=== PATIENT | male | born 1970 | race Caucasian/White ===

== ENCOUNTER → 2017-04-19 | Outpatient (CLI) | payer OTHER | LOC: M PAIN 09:00 | DX: M79.1 Myalgia (principal); M47.816 Spondylosis without myelopathy or radiculopathy, lumbar region; M47.12 Other spondylosis with myelopathy, cervical region; E78.00 Pure hypercholesterolemia, unspecified; Z79.899 Other long term (current) drug therapy; Z88.8 Allergy status to other drugs, medicaments and biological substances | CPT/HCPCS: G0463 ==

== ENCOUNTER → 2017-05-12 | Outpatient (CLI) | payer OTHER ==
[~2017-05-12] MED LIST: BUPIVACAINE HCL 0.25% 10 ML VIAL As Ordered; BUPIVACAINE HCL 0.25% 30 ML VIAL As Ordered; TRIAMCINOLONE ACETONIDE SUSP 40 MG/ML VIAL (J3301) As Ordered; diazePAM 5 MG TAB As Ordered; oxyCODONE 5MG TAB As Ordered
== END ==
LOC: M PAIN 14:00
DX: G89.29 Other chronic pain (principal); M79.1 Myalgia; E78.00 Pure hypercholesterolemia, unspecified; Z79.899 Other long term (current) drug therapy
CPT/HCPCS: J3301

== ENCOUNTER → 2017-06-08 | Outpatient (CLI) | payer OTHER | LOC: M PAIN 14:00 | DX: G89.29 Other chronic pain (principal); M79.1 Myalgia; M47.816 Spondylosis without myelopathy or radiculopathy, lumbar region; M47.12 Other spondylosis with myelopathy, cervical region; K21.9 Gastro-esophageal reflux disease without esophagitis; E78.00 Pure hypercholesterolemia, unspecified; Z79.899 Other long term (current) drug therapy | CPT/HCPCS: G0463 ==

== ENCOUNTER → 2017-08-01 | Outpatient (CLI) | payer OTHER | LOC: M PAIN 14:00 | DX: G89.29 Other chronic pain (principal); M79.1 Myalgia; M54.2 Cervicalgia; M25.511 Pain in right shoulder; M25.512 Pain in left shoulder; M54.6 Pain in thoracic spine; K21.9 Gastro-esophageal reflux disease without esophagitis; M19.90 Unspecified osteoarthritis, unspecified site; E78.00 Pure hypercholesterolemia, unspecified; Z79.899 Other long term (current) drug therapy | CPT/HCPCS: J3301 ==

== ENCOUNTER → 2017-09-01 | Outpatient (CLI) | payer OTHER | LOC: M PAIN 14:30 | DX: M79.1 Myalgia (principal); M47.816 Spondylosis without myelopathy or radiculopathy, lumbar region; M47.12 Other spondylosis with myelopathy, cervical region; K21.9 Gastro-esophageal reflux disease without esophagitis; M19.90 Unspecified osteoarthritis, unspecified site; E78.00 Pure hypercholesterolemia, unspecified | CPT/HCPCS: G0463 ==

== ENCOUNTER → 2017-10-20 | Outpatient (CLI) | payer OTHER | LOC: M PAIN 11:30 | DX: M43.02 Spondylolysis, cervical region (principal); K21.9 Gastro-esophageal reflux disease without esophagitis; E78.00 Pure hypercholesterolemia, unspecified; Z79.899 Other long term (current) drug therapy | CPT/HCPCS: G0463 ==

== ENCOUNTER 2017-12-11 06:51 | Emergency (ER) | payer OTHER ==
[2017-12-11] MEDS: diazePAM 5 MG TAB PO (07:36)
[2017-12-11] MEDS: KETOROLAC 60 MG/2 ML VIAL (J1885) IM (07:37)
== END 2017-12-11 09:12 | disposition home or self-care (01) ==
LOC: M ED 06:51
DX: M50.30 Other cervical disc degeneration, unspecified cervical region (principal); M54.2 Cervicalgia; M62.838 Other muscle spasm; Z79.899 Other long term (current) drug therapy
CPT/HCPCS: J1885

== ENCOUNTER → 2018-01-08 | Outpatient (CLI) | payer OTHER ==
[~2018-01-08] MED LIST changes: -BUPIVACAINE HCL 0.25% 10 ML VIAL As Ordered; -BUPIVACAINE HCL 0.25% 30 ML VIAL As Ordered; +ISOVUE-M 300 61% 15ML VIAL (Q9967) As Ordered; +LIDOCAINE 1% SDV INJ 30 ML VIAL As Ordered; -TRIAMCINOLONE ACETONIDE SUSP 40 MG/ML VIAL (J3301) As Ordered; -diazePAM 5 MG TAB As Ordered; +methylPREDNISolone SUSP 40 MG/ML (DEPO-medrol) VIAL (J1030) As Ordered; -oxyCODONE 5MG TAB As Ordered
== END ==
LOC: M PAIN 11:45
DX: G89.29 Other chronic pain (principal); M48.02 Spinal stenosis, cervical region; K21.9 Gastro-esophageal reflux disease without esophagitis; M19.90 Unspecified osteoarthritis, unspecified site; E78.00 Pure hypercholesterolemia, unspecified; Z79.899 Other long term (current) drug therapy
CPT/HCPCS: J1030

== ENCOUNTER → 2018-01-22 | Outpatient (CLI) | payer OTHER ==
[~2018-01-22] MED LIST changes: +AMBIEN PO; +BUDE300T PO; +BUSPAR PO; +DICL75TA PO; -ISOVUE-M 300 61% 15ML VIAL (Q9967) As Ordered; -LIDOCAINE 1% SDV INJ 30 ML VIAL As Ordered; +LORTABELIX PO; +ROBA500T PO; +[UNRECOGNIZED DRUG - CODE] PO; -methylPREDNISolone SUSP 40 MG/ML (DEPO-medrol) VIAL (J1030) As Ordered
--- NOTE | 2018-02-15 00:50 | ECWPNPC ---
PATIENT NAME: BONILLA RODRIGUEZ : 1970 GENDER: MALE VISIT DATE: 01/22/2018 DISCHARGE DATE: 01/22/18 1136 VISIT LOCKED DATE TIME: PHYSICIAN: STEVIE VERAS RESOURCE: STEVIE VERAS REASON FOR APPOINTMENT 1. POST PROCEDURE HISTORY OF PRESENT ILLNESS DEPRESSION SCREENING: PHQ-2 IN LAST TWO WEEKS HAVE YOU BEEN BOTHERED BY LITTLE INTEREST OR PLEASURE IN DOING THINGSNO FEELING DOWN, DEPRESSED, OR HOPELESSNO HISTORY OF PRESENT ILLNESS: HERE FOR POST PROCEDURE F/U.HAD LILLIAN ON 01-08-18.REPORTING SIGNIFICANT IMPROVEMENT IN PAIN POST PROCEDURE.HAVING LESS TINGLING PAIN IN LEFT ARM POST PROCEDURE.HAVING LESS NECK PAIN POST PROCEDURE.RATING PAIN VAS 3/10. PAIN THE PATIENT DESCRIBES THE PAIN... FALL RISK SCREENING: SCREENING :NO FALLS IN THE PAST YEAR CURRENT MEDICATIONS TAKING IBUPROFEN 800 MG TABLET 1 TABLET WITH FOOD OR MILK NEEDED ORALLY THREE TIMES A DAY TAKING OMEPRAZOLE 20 MG CAPSULE DELAYED RELEASE 1 CAPSULE ORALLY ONCE A DAY TAKING CYMBALTA 30 MG CAPSULE DELAYED RELEASE PARTICLES 1 CAPSULE ORALLY ONCE A DAY NOT-TAKING SIMVASTATIN 20 MG TABLET 1 TABLET IN THE EVENING ORALLY ONCE A DAY NOT-TAKING BUSPIRONE HCL 5 MG TABLET 1 TAB ORALLY TWICE A DAY NOT-TAKING BUPROPION HCL ER (XL) 300 MG TABLET EXTENDED RELEASE 24 HOUR 1 TABLET IN THE MORNING ORALLY ONCE A DAY NOT-TAKING BACTRIM DS 800-160 MG TABLET 1 TABLET ORALLY TWICE A DAY MEDICATION LIST REVIEWED AND RECONCILED WITH THE PATIENT PAST MEDICAL HISTORY ACID REFLUX ARTHRITIS CHRONIC NECK/BACK PAIN HIGH CHOLESTEROL ALLERGIES N.K.D.A. SURGICAL HISTORY RIGHT INGUINAL HERNIA RIGHT INGUINAL HERNIA RIGHT INGUINAL HERNIA 09/19 RIGHT INGUINAL HERNIA 09/25 LEFT SHOULDER(SLAP REPAIR) 01/25 SEPTOPLASTY 07/26 SOCIAL HISTORY GENERAL: TOBACCO USE ARE YOU A:NONSMOKER HIV / HEP-C SCREENING HIV TEST OFFERED TO PATIENT:YES DATE OFFERED:03/24/2017 TEST ACCEPTED:NO REASON:PATIENT DECLINED HEP-C TEST OFFERED TO PATIENT:NO ANGLICAN [id number] NONE LANGUAGE LANGUAGES SPOKEN:FRENCH LEARNING BARRIERS / SPECIAL NEEDS BARRIERS TO LEARNING?NO HEARING IMPAIRED?NO VISION IMPAIRED?YES :CORRECTIVE LENSES GLASSES/CONTACTS COGNITIVELY IMPAIRED?NO READINESS TO LEARN?YES LEARNING PREFERENCES?NO LEARNING CAPABILITIES PRESENT?YES EMOTIONAL BARRIERS?NO SPECIAL DEVICES?NO AUTO 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 CONSTITUTIONAL: ANY CHANGE IN YOUR MEDICAL CONDITION? NO . CHILLS NO . FEVER NO . INFECTION: DO YOU HAVE NEW INFECTIONS? NO . DO YOU HAVE HISTORY OF MRSA? NO . MUSCULOSKELETAL: ANY NEW PATTERNS OF PAIN OR NUMBNESS? NO . GASTROENTEROLOGY: ANY NEW CHANGE IN BOWEL CONTROL? NO . GENITOURINARY: ANY NEW CHANGE IN BLADDER CONTROL? NO . IS THERE A CHANCE YOU COULD BE ? NO . HEMATOLOGY/LYMPH: DO YOU TAKE ANY BLOOD THINNERS? (FOR EXAMPLE- COUMADIN, PLAVIX, AGGRENOX, PLATEL, PRADAXA, OR XARELTO) NO . WHEN WAS YOUR LAST DOSE? DATE: TIME: . NEUROLOGY: HAVE YOU FALLEN IN THE PAST 6 MONTHS? NO . ANY NEW EXTREMITY NUMBNESS OR WEAKNESS? NO . CARDIOLOGY: DO YOU HAVE A PACEMAKER OR DEFIBRILLATOR? NO . RESPIRATORY: HAVE YOU BEEN SICK IN THE PAST WEEK? NO . FEVER NO . FLU LIKE SYMPTOMS? NO . COUGH NO . INTEGUMENTARY: DO YOU HAVE ANY RASHES OR OPEN SORES? NO . ALLERGIC/IMMUNO: ARE YOU ALLERGIC TO SHELLFISH OR IV DYE? NO . ANY NEW ALLERGIES? NO . PSYCHIATRIC: DO YOU HAVE THOUGHTS OF HURTING YOURSELF OR SOMEONE ELSE? NO . ARE YOU ABUSED, NEGLECTED, OR IN AN UNSAFE ENVIRONMENT? NO . ENDOCRINOLOGY: ARE YOU DIABETIC? NO . OTHER: DO YOU NEED ANY PRESCRIPTIONS? NO . IF YES, PLEASE LIST: ____ . ANY NEW PROBLEMS WITH YOUR MEDICATIONS? NO . WHEN DID YOU LAST EAT? ____ . WHEN DID YOU LAST DRINK? ____ . WHAT DID YOU LAST DRINK? ____ . NAME OF PERSON DRIVING YOU HOME? ____ . DO YOU HAVE ANY OTHER QUESTIONS OR CONCERNS NO, FLU VACCINE RECEIVED 01/02/18 . VITAL SIGNS WT 239.0 LBS, HT 71", BMI 33.33 INDEX, BP 137/88 MM HG, HR 94 /MIN, RR 16 /MIN, TEMP 97.0 F, OXYGEN SAT % 96%, NA INITIALS AW 1105, REVIEWED BY: EM. EXAMINATION GENERAL EXAMINATION: GENERAL APPEARANCE:AWAKE,ALERT ,PLEAASANT . PSYCHAFFECT NORMAL . LUNGS:LUNG PABLO ARE CLEAR TO AUSCULTATION BILATERALLY. GOOD MOVEMENT OF AIR . HEART:S1, S2 IN A REGULAR RATE AND RHYTHM. NO SIGNIFICANT MURMURS, RUBS OR GALLOPS NOTED . 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 PROCEDURE CODES FA211 ESTABILISHED PATIENT [facility] FACILITY CHARGE DISPOSITION & COMMUNICATION FOLLOW UP 3 MONTHS ELECTRONICALLY SIGNED BY LUISITO MINOR ON 02/14/2018 AT 02:13 PM EST DISCLAIMER : THIS IS A VISIT SUMMARY EXTRACTED FROM THE [employer] CHART. IT IS NOT A COPY OF THE [employer] PROGRESS NOTE. ANGELITA
== END ==
LOC: M PAIN 11:00
PROVIDERS: ATTEND Nurse Practitioner Family
DX: M43.02 Spondylolysis, cervical region (principal); K21.9 Gastro-esophageal reflux disease without esophagitis; E78.00 Pure hypercholesterolemia, unspecified; Z79.899 Other long term (current) drug therapy

== ENCOUNTER → 2018-04-23 | Outpatient (CLI) | payer OTHER ==
--- NOTE | 2018-05-09 01:59 | ECWPNPC ---
PATIENT NAME: BONILLA RODRIGUEZ : 1970 GENDER: MALE VISIT DATE: 04/23/2018 DISCHARGE DATE: 04/23/18945 VISIT LOCKED DATE TIME: PHYSICIAN: STEVIE VERAS RESOURCE: STEVIE VERAS REASON FOR APPOINTMENT 1. 3 MONTHS HISTORY OF PRESENT ILLNESS HISTORY OF PRESENT ILLNESS: HERE FOR F/U OF CHRONIC NECK PAIN.WAS DOING WELL AFTER LILLIAN DONE ON 01/08/18.PAIN HAS GRAUALLY RETURNED.PAIN RADIATES INTO BOTH SHOULDERS. RATING PAIN VAS 4/10. PAIN THE PATIENT DESCRIBES THE PAIN... FALL RISK SCREENING: SCREENING : NO FALLS IN THE PAST YEAR. CURRENT MEDICATIONS TAKING OMEPRAZOLE 20 MG CAPSULE DELAYED RELEASE 1 CAPSULE ORALLY ONCE A DAY TAKING CYMBALTA 60 MG CAPSULE DELAYED RELEASE PARTICLES 1 CAPSULE ORALLY ONCE A DAY NOT-TAKING IBUPROFEN 800 MG TABLET 1 TABLET WITH FOOD OR MILK NEEDED ORALLY THREE TIMES A DAY NOT-TAKING SIMVASTATIN 20 MG TABLET 1 TABLET IN THE EVENING ORALLY ONCE A DAY NOT-TAKING BUSPIRONE HCL 5 MG TABLET 1 TAB ORALLY TWICE A DAY NOT-TAKING BUPROPION HCL ER (XL) 300 MG TABLET EXTENDED RELEASE 24 HOUR 1 TABLET IN THE MORNING ORALLY ONCE A DAY NOT-TAKING BACTRIM DS 800-160 MG TABLET 1 TABLET ORALLY TWICE A DAY MEDICATION LIST REVIEWED AND RECONCILED WITH THE PATIENT PAST MEDICAL HISTORY ACID REFLUX ARTHRITIS CHRONIC NECK/BACK PAIN HIGH CHOLESTEROL ALLERGIES N.K.D.A. SURGICAL HISTORY RIGHT INGUINAL HERNIA RIGHT INGUINAL HERNIA RIGHT INGUINAL HERNIA 09/19 RIGHT INGUINAL HERNIA 09/25 LEFT SHOULDER(SLAP REPAIR) 01/25 SEPTOPLASTY 07/26 FAMILY HISTORY FATHER: ALIVE MOTHER: SIBLINGS: ALIVE SOCIAL HISTORY GENERAL: TOBACCO USE ARE YOU A:NONSMOKER SMOKELESS TABACCO HIV / HEP-C SCREENING HIV TEST OFFERED TO PATIENT:YES DATE OFFERED:03/24/2017 TEST ACCEPTED:NO REASON:PATIENT DECLINED HEP-C TEST OFFERED TO PATIENT:NO MANDAEISM [id number] NONE LANGUAGE LANGUAGES SPOKEN:MACEDONIAN LEARNING BARRIERS / SPECIAL NEEDS BARRIERS TO LEARNING?NO HEARING IMPAIRED?NO VISION IMPAIRED?YES :CORRECTIVE LENSES GLASSES/CONTACTS COGNITIVELY IMPAIRED?NO READINESS TO LEARN?YES LEARNING PREFERENCES?NO LEARNING CAPABILITIES PRESENT?YES EMOTIONAL BARRIERS?NO SPECIAL DEVICES?NO CUSTOMER ASSISTANT NEEDED?NO PAIN CLINIC PFS, CLERGY, PUBLIC HEALTH REFERRALS HAS THE PATIENT BEEN EDUCATED REGARDING HIS/HER PLAN OF CARE?YES HAS THE PATIENT BEEN EDUCATED REGARDING PAIN, THE RISK FOR PAIN, THE IMPORTANCE OF EFFECTIVE PAIN MANAGEMENT, AND THE PAIN ASSESSMENT PROCESS?YES ADVANCE DIRECTIVE ADVANCE DIRECTIVE DISCUSSED WITH PATIENT:YES DECLINED HOSPITALIZATION/MAJOR DIAGNOSTIC PROCEDURE SURGERIES REVIEW OF SYSTEMS REVIEWED BY: PROVIDER: STEVIE JORGE . CONSTITUTIONAL: ANY CHANGE IN YOUR MEDICAL CONDITION? NO . CHILLS NO . FEVER NO . INFECTION: DO YOU HAVE NEW INFECTIONS? NO . DO YOU HAVE HISTORY OF MRSA? NO . MUSCULOSKELETAL: ANY NEW PATTERNS OF PAIN OR NUMBNESS? INCREASED PAIN IN SHOULDER AREAS MORE TO THE LEFT . GASTROENTEROLOGY: ANY NEW CHANGE IN BOWEL CONTROL? NO . GENITOURINARY: ANY NEW CHANGE IN BLADDER CONTROL? NO . IS THERE A CHANCE YOU COULD BE ? NO . HEMATOLOGY/LYMPH: DO YOU TAKE ANY BLOOD THINNERS? (FOR EXAMPLE- COUMADIN, PLAVIX, AGGRENOX, PLATEL, PRADAXA, OR XARELTO) NO . WHEN WAS YOUR LAST DOSE? DATE: TIME: . NEUROLOGY: HAVE YOU FALLEN IN THE PAST 12 MONTHS? NO . ANY NEW EXTREMITY NUMBNESS OR WEAKNESS? NO . CARDIOLOGY: DO YOU HAVE A PACEMAKER OR DEFIBRILLATOR? NO . RESPIRATORY: HAVE YOU BEEN SICK IN THE PAST WEEK? NO . FEVER NO . FLU LIKE SYMPTOMS? NO . COUGH NO . INTEGUMENTARY: DO YOU HAVE ANY RASHES OR OPEN SORES? NO . ALLERGIC/IMMUNO: ARE YOU ALLERGIC TO IV DYE? NO . ANY NEW ALLERGIES? NO . PSYCHIATRIC: DO YOU HAVE THOUGHTS OF HURTING YOURSELF OR SOMEONE ELSE? NO . ARE YOU ABUSED, NEGLECTED, OR IN AN UNSAFE ENVIRONMENT? NO . ENDOCRINOLOGY: ARE YOU DIABETIC? NO . OTHER: DO YOU NEED ANY PRESCRIPTIONS? NO . IF YES, PLEASE LIST: ____ . ANY NEW PROBLEMS WITH YOUR MEDICATIONS? NO . WHEN DID YOU LAST EAT? ____ . WHEN DID YOU LAST DRINK? ____ . WHAT DID YOU LAST DRINK? ____ . NAME OF PERSON DRIVING YOU HOME? ____ . DO YOU HAVE ANY OTHER QUESTIONS OR CONCERNS NO . VITAL SIGNS WT 244.4 LBS, HT 71", BMI 34.08 INDEX, BP 139/95 MM HG, HR 72 /MIN, RR 16 /MIN, TEMP 97.0 F, OXYGEN SAT % 96%, NA INITIALS AW 0906. EXAMINATION GENERAL EXAMINATION: GENERAL APPEARANCE:ALERT,NO DISTRESS . PSYCHAFFECT NORMAL . LUNGS:LUNG PABLO ARE CLEAR TO AUSCULTATION BILATERALLY. GOOD MOVEMENT OF AIR . HEART:S1, S2 IN A REGULAR RATE AND RHYTHM. NO SIGNIFICANT MURMURS, RUBS OR GALLOPS NOTED . MUSCULOSKELETAL:5/5 UPPER EXTREMITY MST. CERVICAL- FOR PAIN WITH PALPATION OF CERVICAL SPINE. - FOR PAIN WITH PALPATION OF CERVICAL PARASPINALS. - FOR PAIN WITH PALPATION OF TRAPEZIUS BILAT . NEUROLOGIC EXAM:NORMAL SENSATION LIGHT TOUCH BILAT. ARMS.EQUAL /STRONG SOLAR ENERGY SYSTEMS DESIGNER STRENGTH BILAT. HANDS. DIAGNOSTIC:CERVICAL MRI-01/2017. 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 PROCEDURE CODES FA211 ESTABILISHED PATIENT [facility] CHARGE DISPOSITION & COMMUNICATION FOLLOW UP POST (REASON: LILLIAN) ELECTRONICALLY SIGNED BY LUISITO MINOR ON 05/07/2018 AT 09:10 AM EDT DISCLAIMER : THIS IS A VISIT SUMMARY EXTRACTED FROM THE [employer] CHART. IT IS NOT A COPY OF THE [employer] PROGRESS NOTE. ANGELITA
== END ==
LOC: M PAIN 09:00
PROVIDERS: ATTEND Nurse Practitioner Family
DX: M43.02 Spondylolysis, cervical region (principal); G89.29 Other chronic pain; K21.9 Gastro-esophageal reflux disease without esophagitis; M19.90 Unspecified osteoarthritis, unspecified site; E78.00 Pure hypercholesterolemia, unspecified; Z79.899 Other long term (current) drug therapy

== ENCOUNTER → 2018-05-17 | Outpatient (CLI) | payer OTHER ==
[~2018-05-17] MED LIST changes: +AMOX875T2 PO; +DULO1CAP3 PO; +HYDR-3713 PO; +ISOVUE-M 300 61% 15ML VIAL (Q9967) As Ordered ONE; +LIDOCAINE 1% SDV INJ 30 ML VIAL As Ordered ONE; +NAPR-855 PO; +OMEP-221 PO; +PRED10PA PO; +methylPREDNISolone SUSP 40 MG/ML (DEPO-medrol) VIAL (J1030) As Ordered ONE
--- NOTE | 2018-05-17 15:47 | REP ---
Cervical spine: Limited views. History: Cervical epidural injection for pain. 13 seconds of fluoroscopy time is reported. Findings: A sequence of four last image hold fluoroscopically obtained spot radiographs of the cervicothoracic junction document needle position and contrast injection associated with cervical epidural injection was. Electronically Signed by García Cardenas MD 05/17/2018 03:39 P
--- NOTE | 2018-06-04 00:07 | ECWPNPC ---
PATIENT NAME: BONILLA RODRIGUEZ : 1970 GENDER: MALE VISIT DATE: 05/17/2018 DISCHARGE DATE: 05/17/18 1556 VISIT LOCKED DATE TIME: PHYSICIAN: IRENE GONZALES MD RESOURCE: IRENE GONZALES MD REASON FOR APPOINTMENT 1. LILLIAN HISTORY OF PRESENT ILLNESS HISTORY OF PRESENT ILLNESS: PAIN THE PATIENT DESCRIBES THE PAIN... FALL RISK SCREENING: SCREENING :NO FALLS REPORTED IN THE LAST YEAR CURRENT MEDICATIONS TAKING OMEPRAZOLE 20 MG CAPSULE DELAYED RELEASE 1 CAPSULE ORALLY ONCE A DAY, NOTES: [id number] TAKING CYMBALTA 60 MG CAPSULE DELAYED RELEASE PARTICLES 1 CAPSULE ORALLY ONCE A DAY, NOTES: 05-17-18799 NOT-TAKING IBUPROFEN 800 MG TABLET 1 TABLET WITH FOOD OR MILK NEEDED ORALLY THREE TIMES A DAY NOT-TAKING SIMVASTATIN 20 MG TABLET 1 TABLET IN THE EVENING ORALLY ONCE A DAY NOT-TAKING BUSPIRONE HCL 5 MG TABLET 1 TAB ORALLY TWICE A DAY NOT-TAKING BUPROPION HCL ER (XL) 300 MG TABLET EXTENDED RELEASE 24 HOUR 1 TABLET IN THE MORNING ORALLY ONCE A DAY NOT-TAKING BACTRIM DS 800-160 MG TABLET 1 TABLET ORALLY TWICE A DAY MEDICATION LIST REVIEWED AND RECONCILED WITH THE PATIENT PAST MEDICAL HISTORY ACID REFLUX ARTHRITIS CHRONIC NECK/BACK PAIN HIGH CHOLESTEROL ALLERGIES N.K.D.A. SURGICAL HISTORY RIGHT INGUINAL HERNIA RIGHT INGUINAL HERNIA RIGHT INGUINAL HERNIA 09/19 RIGHT INGUINAL HERNIA 09/25 LEFT SHOULDER(SLAP REPAIR) 01/25 SEPTOPLASTY 07/26 BILATERAL PRK 2007 LEFT ANKLE ARTHROSCOPY 2016 RIGHT TIB/FIB REPAIR 2006 FAMILY HISTORY FATHER: ALIVE MOTHER: SIBLINGS: ALIVE SOCIAL HISTORY GENERAL: TOBACCO USE ARE YOU A:NONSMOKER SMOKELESS TOBACCO HIV / HEP-C SCREENING HIV TEST OFFERED TO PATIENT:YES DATE OFFERED:03/24/2017 TEST ACCEPTED:NO REASON:PATIENT DECLINED HEP-C TEST OFFERED TO PATIENT:NO NONDENOMINATIONAL [id number] NONE LANGUAGE LANGUAGES SPOKEN:DOMINICAN LEARNING BARRIERS / SPECIAL NEEDS BARRIERS TO LEARNING?NO HEARING IMPAIRED?NO VISION IMPAIRED?YES :CORRECTIVE LENSES GLASSES/CONTACTS COGNITIVELY IMPAIRED?NO READINESS TO LEARN?YES LEARNING PREFERENCES?NO LEARNING CAPABILITIES PRESENT?YES EMOTIONAL BARRIERS?NO SPECIAL DEVICES?NO TEACHER PRESCHOOL NEEDED?NO PAIN CLINIC PFS, CLERGY, PUBLIC HEALTH REFERRALS HAS THE PATIENT BEEN EDUCATED REGARDING HIS/HER PLAN OF CARE?YES HAS THE PATIENT BEEN EDUCATED REGARDING PAIN, THE RISK FOR PAIN, THE IMPORTANCE OF EFFECTIVE PAIN MANAGEMENT, AND THE PAIN ASSESSMENT PROCESS?YES ADVANCE DIRECTIVE ADVANCE DIRECTIVE DISCUSSED WITH PATIENT:YES DECLINED HOSPITALIZATION/MAJOR DIAGNOSTIC PROCEDURE SURGERIES REVIEW OF SYSTEMS REVIEWED BY: PROVIDER: . CONSTITUTIONAL: ANY CHANGE IN YOUR MEDICAL CONDITION? NO . CHILLS NO . FEVER NO . INFECTION: DO YOU HAVE NEW INFECTIONS? NO . DO YOU HAVE HISTORY OF MRSA? NO . MUSCULOSKELETAL: ANY NEW PATTERNS OF PAIN OR NUMBNESS? NO . GASTROENTEROLOGY: ANY NEW CHANGE IN BOWEL CONTROL? NO . GENITOURINARY: ANY NEW CHANGE IN BLADDER CONTROL? NO . IS THERE A CHANCE YOU COULD BE ? NO . HEMATOLOGY/LYMPH: DO YOU TAKE ANY BLOOD THINNERS? (FOR EXAMPLE- COUMADIN, PLAVIX, AGGRENOX, PLATEL, PRADAXA, OR XARELTO) NO . WHEN WAS YOUR LAST DOSE? DATE: TIME: . NEUROLOGY: HAVE YOU FALLEN IN THE PAST 12 MONTHS? YES . ANY NEW EXTREMITY NUMBNESS OR WEAKNESS? YES . CARDIOLOGY: DO YOU HAVE A PACEMAKER OR DEFIBRILLATOR? NO . RESPIRATORY: HAVE YOU BEEN SICK IN THE PAST WEEK? NO . FEVER NO . FLU LIKE SYMPTOMS? NO . COUGH NO . INTEGUMENTARY: DO YOU HAVE ANY RASHES OR OPEN SORES? NO . ALLERGIC/IMMUNO: ARE YOU ALLERGIC TO IV DYE? NO . ANY NEW ALLERGIES? NO . PSYCHIATRIC: DO YOU HAVE THOUGHTS OF HURTING YOURSELF OR SOMEONE ELSE? NO . ARE YOU ABUSED, NEGLECTED, OR IN AN UNSAFE ENVIRONMENT? NO . ENDOCRINOLOGY: ARE YOU DIABETIC? NO . OTHER: DO YOU NEED ANY PRESCRIPTIONS? NO . IF YES, PLEASE LIST: ____ . ANY NEW PROBLEMS WITH YOUR MEDICATIONS? NO . WHEN DID YOU LAST EAT? 05-16-18 2200 . WHEN DID YOU LAST DRINK? 05-17-18 1000 . WHAT DID YOU LAST DRINK? WATER . NAME OF PERSON DRIVING YOU HOME? JOSE RODRIGUEZ . DO YOU HAVE ANY OTHER QUESTIONS OR CONCERNS NO . VITAL SIGNS WT 244.0 LBS, HT 71", BMI 34.03 INDEX, BP 148/96 MANUAL, HR 73 /MIN, RR 16 /MIN, TEMP 98.0 F, OXYGEN SAT % 97%, NA INITIALS CM 1314, REVIEWED BY: FLOR. ASSESSMENTS CERVICAL SPINAL STENOSIS - M48.02 (PRIMARY) CERVICAL DISC DISORDER WITH RADICULOPATHY OF CERVICAL REGION - M50.10 PROCEDURES PN CERVICAL EPIDURAL PRE PROCEDURE DIAGNOSIS CERVICAL DISC DISORDER WITH RADICULOPATHY , CERVICAL SPINAL STENOSIS POST PROCEDURE DIAGNOSIS CERVICAL DISC DISORDER WITH RADICULOPATHY ,CERVICAL SPINAL STENOSIS PROCEDURE CERVICAL EPIDURAL STEROID INJECTION UNDER FLUOROSCOPIC GUIDANCE SURGEON DR. IRENE GONZALES TERRITORY REPRESENTATIVE NONE ANESTHESIA LOCAL PRE PROCEDURE NOTE THE PATIENT HAS A HISTORY OF CHRONIC CERVICAL PAIN. I EVALUATE THE PATIENT AND REVIEWED THE CHART. I WENT OVER THE RISKS, ALTERNATIVES, AND BENEFITS ASSOCIATED WITH THIS PROCEDURE. THE PATIENT WOULD LIKE TO PROCEED AND GIVE CONSENT TO PERFORMED THE PROCEDURE. THE PATIENT DENIES UNEXPLAINABLE WEIGHT LOSS, FEVER, CHILLS, OR NEW CHANGES IN URINARY OR BOWEL CONTROL DESCRIPTION OF PROCEDURE THE PATIENT WAS BROUGHT TO THE PROCEDURE ROOM AND PLACED IN THE PRONE POSITION. THE CERVICOTHORACIC AREA WAS CLEANED WITH BETADINE SOLUTION AND DRAPED ASEPTICALLY. THE PROCEDURE WAS DONE UNDER STERILE CONDITIONS. I CHECKED LATERALITY AND THE LEVEL WHERE THE PROCEDURE WAS GOING TO BE PERFORMED WITH THE PATIENT AND THE SUPPORTING STAFF AT THE MOMENT OF THE TIME OUT IN THE PROCEDURE ROOM. UNDER FLUOROSCOPIC GUIDANCE, THE TARGET WAS SELECTED AT THE INTERLAMINAR LEVEL OF C7-T1. LIDOCAINE WAS USED TO NUMB THE SKIN AND THE SUBCUTANEOUS TISSUE BELOW IT. EPIDURAL TUOHY NEEDLE 17-GAUGE WAS ADVANCED UNDER FLUOROSCOPIC GUIDANCE AND FOLLOWING PATIENT FEEDBACK UNTIL THE EPIDURAL SPACE WAS REACHED 6 CM DEEP INTO THE SKIN BY THE LOSS OF RESISTANCE TECHNIQUE. ISOVUE M DYE 30%, 0.25 ML, WAS INJECTED SHOWING ADEQUATE SPREAD OF THE DYE. THEN, A SOLUTION OF 3 ML OF NORMAL SALINE WITH DEPO-MEDROL 60 MG WAS INJECTED SLOWLY FOLLOWING PATIENT FEEDBACK. THERE WAS NO EVIDENCE OF BLOOD, PARESTHESIA OR CEREBROSPINAL FLUID DURING THE PROCEDURE. THE PATIENT WAS SENT TO THE RECOVERY ROOM. THE PATIENT WAS MOVING THE EXTREMITIES AND DOING WELL. THERE WAS NO COMPLICATION DURING THE PROCEDURE. FLUOROSCOPY TIME WAS 13 SECONDS POST PROCEDURE NOTE THE PATIENT WILL BE SEEN IN A FOLLOW UP IN THE NEXT FEW WEEKS. INSTRUCTIONS WERE GIVEN, QUESTIONS WERE ANSWERED, AND THE PATIENT EXPRESSED UNDERSTANDING AND AGREES WITH THE PLAN. I, ZAHIRA FROST, DOCUMENTED THE ABOVE INFORMATION ACTING A SCRIBE FOR DR. GONZALES. I HAVE REVIEWED THE ABOVE DOCUMENT, WRITTEN BY ZAHIRA LAMBIBMari AND I VERIFY THAT IT IS ACCURATE. DIAGNOSTIC IMAGING [facility] FLUORO GUIDE SPINE INJECTION (PAIN)[id number] PROCEDURE CODES 6045F RADXPS IN END [id number] PXD [id number] CERVICAL/THORACIC W/ IMAGING DISPOSITION & COMMUNICATION FOLLOW UP 3 WEEKS ELECTRONICALLY SIGNED BY IRENE GONZALES MD, MD ON 06/03/2018 AT 03:32 PM EDT DISCLAIMER : THIS IS A VISIT SUMMARY EXTRACTED FROM THE [employer] CHART. IT IS NOT A COPY OF THE [employer] PROGRESS NOTE. MTDD
== END ==
LOC: M PAIN 12:30
PROVIDERS: ATTEND Anesthesiology
DX: G89.29 Other chronic pain (principal); M48.02 Spinal stenosis, cervical region; M50.10 Cervical disc disorder with radiculopathy, unspecified cervical region; K21.9 Gastro-esophageal reflux disease without esophagitis; M19.90 Unspecified osteoarthritis, unspecified site; E78.00 Pure hypercholesterolemia, unspecified; Z72.0 Tobacco use; Z79.899 Other long term (current) drug therapy
CPT/HCPCS: 62321; J1030; Q9967

== ENCOUNTER 2018-05-23 14:35 | Inpatient (IN) | payer OTHER ==
[~2018-05-23] VITALS: Ht 180.3 cm; Wt 110.4 kg
[~2018-05-23 14:35] MED LIST changes: -AMOX875T2 PO; -DULO1CAP3 PO; -HYDR-3713 PO; -ISOVUE-M 300 61% 15ML VIAL (Q9967) As Ordered ONE; -LIDOCAINE 1% SDV INJ 30 ML VIAL As Ordered ONE; -NAPR-855 PO; -OMEP-221 PO; -PRED10PA PO; -methylPREDNISolone SUSP 40 MG/ML (DEPO-medrol) VIAL (J1030) As Ordered ONE
[2018-05-23] MEDS ORDERED: NAPR-855 PO (14:49)
[2018-05-23] MEDS ORDERED: HYDR-3713 PO (14:49)
[2018-05-23] MEDS ORDERED: DULO1CAP3 PO (14:50)
[2018-05-23] MEDS ORDERED: OMEP-221 PO (14:50)
[2018-05-23 15:29] LABS: BASO % 0.2 % (0.0-1.0); EOS # 0.1 10^3/uL (0.0-0.50); EOS % 0.7 % (0.0-3.0); HEMATOCRIT 43.3 % (42.0-52.0); HEMOGLOBIN 14.9 g/dl (13.5-17.5); LYMPH % 15.1 % (24.0-44.0); MEAN CORPUSCULAR HEMOGLOBIN 31.3 pg (27.0-33.0); MEAN CORPUSCULAR HGB CONC 34.4 g/dl (32.0-36.5); MONO # 0.6 10^3/uL (0.0-0.8); MONO % 4.6 % (0.0-5.0); NEUTROPHILS # 10.2 10^3/uL (1.8-7.7); NEUTROPHILS % 78.6 % (36.0-66.0); PLATELET COUNT, AUTOMATED 204 10^3/uL (150-450); RED BLOOD COUNT 4.76 10^6/uL (4.30-6.10); WHITE BLOOD COUNT 12.9 10^3/uL (4.0-10.0)
[2018-05-23 15:40] LABS: INR 1.07; PARTIAL THROMBOPLASTIN TIME 24.4 SECONDS (25.4-37.6)
--- NOTE | 2018-05-23 15:44 | REP ---
CHEST, SINGLE VIEW: There is no evidence of acute infiltrate. No pleural effusion is seen. The heart is normal in size. The mediastinal silhouette is unremarkable. The visualized osseous structures are intact. IMPRESSION: No acute pulmonary disease. Electronically Signed by Andrea Hernandez MD 05/24/2018 08:32 P
[2018-05-23 15:58] LABS: ALBUMIN 3.6 GM/DL (3.2-5.2); ALT/SGPT 36 U/L (12-78); BILIRUBIN,DIRECT 0.2 MG/DL (0.0-0.2); BILIRUBIN,TOTAL 0.8 MG/DL (0.2-1.0); BLOOD UREA NITROGEN 15 MG/DL (7-18); CALCIUM LEVEL 8.4 MG/DL (8.5-10.1); CARBON DIOXIDE LEVEL 29 MEQ/L (21-32); CHLORIDE LEVEL 104 MEQ/L (98-107); CK-MB VALUE MASS < 1.0 NG/ML (<3.6); CPK CREATINE PHOSPHOKINASE 100 U/L (39-308); CREATININE FOR GFR 1.28 MG/DL (0.70-1.30); FREE T4 1.18 NG/DL (0.76-1.46); GLOMERULAR FILTRATION RATE > 60.0 (>60); GLUCOSE, FASTING 117 MG/DL (70-100); LIPASE 89 U/L (73-393); NT-PRO BNP 16 PG/ML (<125); POTASSIUM SERUM 3.9 MEQ/L (3.5-5.1); SODIUM LEVEL 140 MEQ/L (136-145); THYROID STIMULATING HORMONE 0.585 uIU/ML (0.358-3.740); TOTAL PROTEIN 6.7 GM/DL (6.4-8.2); TROPONIN I < 0.02 NG/ML (< 0.10)
[2018-05-23] MEDS ORDERED: ISOVUE-370 76% 100ML VIAL (Q9967) As Ordered ONE (16:08)
[2018-05-23 16:22] LABS: ABG BASE EXCESS 1.5 (-2.0-2.0); ABG HCO3 27.2 MEQ/L (22.0-26.0); ABG O2 SATURATION 90.3 % (95.0-99.0); ABG PARTIAL PRESSURE CO2 46.5 mmHg (35.0-45.0); ABG PARTIAL PRESSURE O2 56.8 mmHg (75.0-100.0); ABG STANDARD HCO3 25.6 MEQ/L (22.0-26.0); ABG TOTAL CO2 28.6 MEQ/L (22.0-29.0); ABG pH (ARTERIAL) 7.385 UNITS (7.350-7.450)
[2018-05-23] MEDS ORDERED: IPRATROPIUM 0.5MG/ALBUTEROL 2.5MG INH SOL UD 3ML (DUONEB)(J7620) NEB ONE (16:45)
[2018-05-23] MEDS ORDERED: ALBUTEROL SULFATE 2.5 MG/0.5 ML INH NEB SOLN INH ONE (16:45)
--- NOTE | 2018-05-23 16:50 | REP ---
CT of the chest with IV contrast: Next Comparison is the portable chest performed earlier today. There are bilateral infiltrates posteriorly in the upper lobes and bilateral infiltrates in the superior segment of the lower lobes. These are not visible on the comparison portable plain film study. There are no pleural effusions. No masses or nodules are identified. No mediastinal or hilar lymph node enlargement is identified. No axillary lymph node enlargement is identified. The thoracic aorta is unremarkable. Cardiac size is normal. The visualized upper abdominal contents are unremarkable. CT pulmonary artery angiography: There are no emboli in the pulmonary trunk or central pulmonary arteries. There are no emboli in the pulmonary lobe or segment branches. Impression: There are no pulmonary emboli. There are bilateral infiltrates as described. Electronically Signed by Andrea Nolasco MD 05/23/2018 04:42 P
[2018-05-23] MEDS ORDERED: methylPREDNISolone INJ 125 MG/2 ML VIAL (J2930) IV ONE (17:15)
[2018-05-23] MEDS ORDERED: PIPERACILLIN/TAZOBACTAM SOD 4.5 GM in D5W MINI-BAG PLUS 50 ML IV ONE (17:15)
[2018-05-23] MEDS ORDERED: NORCO, ANEXSIA 5/325MG TABLET (HYDROcodone/ACETAMINOPHEN) PO PRN (18:00)
[2018-05-23] MEDS ORDERED: ACETAMINOPHEN 500 MG TAB PO PRN (18:00)
--- NOTE | 2018-05-23 18:51 | HPE ---
DATE OF ADMISSION: 05/23/2018 ATTENDING PHYSICIAN: Gasperist . CHIEF COMPLAINT: Bilateral pulmonary infiltrates suspicious for aspiration pneumonia. 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 He underwent decompression left ulnar nerve as an outpatient [facility] for discussion between Dr. Hernandez and the anesthesiologist. The patient had significant laryngeal spasm after extubation. He presents to the emergency room hypoxemic and short of breath having hemoptysis. He is short of breath at rest and he denies fevers or chills. He does have a mild leukocytosis. Chest x-ray is unremarkable. CT angiogram showed no pulmonary embolism. Had bilateral infiltrates. Clinical picture is suspicious for aspiration pneumonia. He is being admitted for treatment of this. PAST MEDICAL HISTORY: Essentially benign. He had a uvulopalatopharyngoplasty done for sleep apnea 09/2012. Deviated septum repair 04/2012. He goes to the pain clinic for chronic neck pain. He gets steroid injections. Other past history of shows hyperlipidemia, GERD/reflux and arthritis. PAST SURGICAL HISTORY: Inguinal hernia repairs with a right inguinal hernia repair times 3, left shoulder SLAP repair 01/25, septoplasty and UPPP as summarized above. SOCIAL HISTORY: Nonsmoker. MEDICATIONS: Cymbalta 60 mg daily, Vicodin as needed postoperatively, omeprazole 40 mg daily, Naprosyn as needed. ALLERGIES: None known. REVIEW OF SYSTEMS: No unexplained weight loss, fevers or chills, night sweats. He is having murphy hemoptysis in the emergency room. PHYSICAL EXAMINATION: VITAL SIGNS: Per flow sheet. GENERAL APPEARANCE: He is well resting comfortably and frequent cough. Pupils are equal and round. NECK: No masses. LUNGS: Rales bilaterally diffusely, particularly posterior lung guzman, algorithm. No murmur. ABDOMEN: Soft and nontender and no masses. EXTREMITIES: No edema. Normal strength in the arms and legs. Surgical incision left elbow, clean dry and intact. LABS: White count 12.9, hemoglobin 14.9, platelets 204, sodium 140, potassium 3.9, BUN 15, creatinine 1.2, glucose 117. ABG presumably on room air 7.38/45/56/90%. CT angiogram as summarized above. IMPRESSION: 1. Bilateral infiltrates suspicious for aspiration pneumonia. Patient will be admitted to a PCU bed. IV Zosyn has been ordered. Empiric steroids have been ordered due to hemoptysis, mechanical DVT prophylaxis with sequentials have been ordered with pharmacologic anticoagulation contraindicated. 2. Chronic neck pain. He will continue his opiate analgesic as needed. 3. GERD. Continue PPI therapy.
--- NOTE | 2018-05-23 21:43 | ECGEPIP ---
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
[2018-05-23] MEDS: PIPERACILLIN/TAZOBACTAM SOD 3.375 GM in D5W MINI-BAG PLUS 50 ML IV SCH (23:00)
[2018-05-23] MEDS: ALBUTEROL SULFATE 2.5 MG/0.5 ML INH NEB SOLN NEB PRN (23:05)
[2018-05-24] MEDS: PIPERACILLIN/TAZOBACTAM SOD 3.375 GM in D5W MINI-BAG PLUS 50 ML IV SCH ×4 (05:00→23:22)
[2018-05-24 06:36] LABS: HEMATOCRIT 41.4 % (42.0-52.0); HEMOGLOBIN 14.1 g/dl (13.5-17.5); MEAN CORPUSCULAR HEMOGLOBIN 30.1 pg (27.0-33.0); MEAN CORPUSCULAR HGB CONC 34.1 g/dl (32.0-36.5); MEAN CORPUSCULAR VOLUME 88.5 fl (80.0-96.0); PLATELET COUNT, AUTOMATED 209 10^3/uL (150-450); RED BLOOD COUNT 4.68 10^6/uL (4.30-6.10)
[2018-05-24 06:57] LABS: BLOOD UREA NITROGEN 14 MG/DL (7-18); CALCIUM LEVEL 8.8 MG/DL (8.5-10.1); CARBON DIOXIDE LEVEL 26 MEQ/L (21-32); CHLORIDE LEVEL 107 MEQ/L (98-107); GLOMERULAR FILTRATION RATE > 60.0 (>60); GLUCOSE, FASTING 147 MG/DL (70-100); POTASSIUM SERUM 4.1 MEQ/L (3.5-5.1); SODIUM LEVEL 139 MEQ/L (136-145)
[2018-05-24 08:00] VITALS: BP 134/77
[2018-05-24 08:27] LABS: C REACTIVE PROTEIN QUANTITATIV 3.44 MG/DL (0.00-0.30)
[2018-05-24] MEDS: PANTOPRAZOLE 40MG TAB (PROTONIX) PO SCH (08:43)
[2018-05-24] MEDS: DULoxetine 30 MG CAP (CYMBALTA) PO SCH (08:43)
[2018-05-24] MEDS: methylPREDNISolone INJ 40 MG/1 ML VIAL (J2920) IV SCH (08:44)
[2018-05-24] MEDS: ALBUTEROL SULFATE 2.5 MG/0.5 ML INH NEB SOLN NEB PRN (11:02)
[2018-05-24 12:00] VITALS: BP 145/66
[2018-05-24 13:00] VITALS: BP 134/84
[2018-05-24] MEDS ORDERED: SLF 3 ML SYR IV PRN (14:30)
[2018-05-24 16:00] VITALS: BP 141/86
[2018-05-24 20:00] VITALS: BP 138/86
--- NOTE | 2018-05-24 20:17 | IPN ---
DATE: 05/24/2018 The patient is seen and examined at bedside. He states that he feels about the same since admission. Per the patient, he underwent surgery 2 days ago during which he woke up prior to his mouth guard and block were removed. He therefore choked on this and since then has had difficulty breathing, has been taking shallow breaths and noticed some bloody phlegm as well. He was advised to come to the emergency room for concerns of laryngospasm and aspiration. He continues on supplemental oxygen and antibiotics today and has no other complaints or concerns. No reported events overnight. He denies fever, chills, nausea, vomiting, abdominal pain, or any chest discomfort. He still continues to bring up bloody phlegm into this morning. PHYSICAL EXAMINATION: VITAL SIGNS: Temperature 98.2, pulse 74, respirations 20, blood pressure 134/77, MAP of 96, pulse oximetry 93% on 2 liters nasal cannula. GENERAL: Resting comfortably in bed in no acute distress. Alert and oriented times three. Conversant and able to speak in full sentences. HEENT: Normocephalic, atraumatic. Extraocular muscles intact. Anicteric sclerae. Moist mucous membranes. Neck is supple. No jugular venous distention (JVD). No pharyngeal edema, erythema, or exudates. Patent airway is present. CARDIAC: Regular rate and rhythm without any murmurs, clicks or gallops. Normal S1, S2. LUNGS: Bilateral crackles in bases, more so on the left side. Equal chest rise bilaterally. Clear in the upper lung guzman. ABDOMEN: Soft, nontender, nondistended. Positive bowel sounds. EXTREMITIES: 2+ radial pulses bilaterally. No peripheral edema. Able to move all extremities. NEUROLOGIC: No focal deficits. SKIN: No visible lesions or rashes. LABORATORIES: WBC 15, hemoglobin and hematocrit 14.1 and 41.4, platelets 209. Electrolytes normal. BUN and creatinine 14 and 1.2. C-reactive protein 3.4. Procalcitonin is 0.15. Blood cultures negative at 24 hours. IMPRESSION/PLAN: 1. Acute hypoxia, likely secondary to aspiration pneumonia from recent surgery. He continues on supplemental oxygen 2 to 3 liters today, whereas at baseline he is on room air. Continue IV Zosyn and IV steroids to assist with any inflammation and airway edema. We will wean down steroids as he improves. His hemoptysis is likely also secondary to his recent aspiration pneumonia and choking during his recent surgery. C-reactive protein is elevated, we will trend this down. Procalcitonin ordered. Leukocytosis is likely secondary to this, as well as being on steroids. Otherwise, he is afebrile. He is placed on aspiration precautions, and sputum culture has been ordered. He is able to tolerate his diet well and has not had any pooling of his secretions. Continue monitoring. 2. History of obstructive sleep apnea, status post uvuloplasty. Bring in home continuous positive airway pressure (CPAP). 3. Osteoarthritis. Continue home pain medications. 4. Cervicalgia with peripheral neuropathy. Continue home Cymbalta. 5. Gastroesophageal reflux disease (GERD). Continue home Protonix. 6. Deep vein thrombosis (DVT) prophylaxis. Encourage ambulation. Thromboembolic compression stockings (TEDS) and SCDs. DISPOSITION: Pending clinical improvement, wean down off oxygen. My faculty preceptor for this patient encounter was physically present during the encounter and was fully available. All aspects of the patient interview, examination, medical decision making process, and medical care plan development were reviewed and approved by the faculty preceptor. The faculty preceptor is aware and concurs with the plan as stated in the body of this note and will attest to such by his/her co-signature.
[2018-05-24] MEDS: SLF 3 ML SYR IV SCH (22:00)
[2018-05-25] VITALS (7 sets, daily range): BP systolic 128–144; BP diastolic 68–102
[2018-05-25] MEDS: ALBUTEROL SULFATE 2.5 MG/0.5 ML INH NEB SOLN NEB PRN (00:31)
[2018-05-25 04:57] LABS: HEMATOCRIT 44.2 % (42.0-52.0); HEMOGLOBIN 14.8 g/dl (13.5-17.5); MEAN CORPUSCULAR HEMOGLOBIN 30.6 pg (27.0-33.0); MEAN CORPUSCULAR HGB CONC 33.5 g/dl (32.0-36.5); MEAN CORPUSCULAR VOLUME 91.3 fl (80.0-96.0); PLATELET COUNT, AUTOMATED 208 10^3/uL (150-450); RED BLOOD COUNT 4.84 10^6/uL (4.30-6.10); WHITE BLOOD COUNT 18.1 10^3/uL (4.0-10.0)
[2018-05-25 05:14] LABS: BLOOD UREA NITROGEN 16 MG/DL (7-18); CALCIUM LEVEL 8.7 MG/DL (8.5-10.1); CARBON DIOXIDE LEVEL 26 MEQ/L (21-32); CHLORIDE LEVEL 106 MEQ/L (98-107); CREATININE FOR GFR 1.17 MG/DL (0.70-1.30); GLOMERULAR FILTRATION RATE > 60.0 (>60); GLUCOSE, FASTING 110 MG/DL (70-100); POTASSIUM SERUM 3.7 MEQ/L (3.5-5.1); SODIUM LEVEL 139 MEQ/L (136-145)
[2018-05-25] MEDS: SLF 3 ML SYR IV SCH ×3 (06:00→19:30)
[2018-05-25] MEDS: PIPERACILLIN/TAZOBACTAM SOD 3.375 GM in D5W MINI-BAG PLUS 50 ML IV SCH ×4 (06:19→22:50)
[2018-05-25 07:48] LABS: C REACTIVE PROTEIN QUANTITATIV 1.45 MG/DL (0.00-0.30)
[2018-05-25] MEDS: PANTOPRAZOLE 40MG TAB (PROTONIX) PO SCH (09:36)
[2018-05-25] MEDS: DULoxetine 30 MG CAP (CYMBALTA) PO SCH (09:36)
[2018-05-25] MEDS: methylPREDNISolone INJ 40 MG/1 ML VIAL (J2920) IV SCH (09:36)
--- NOTE | 2018-05-25 10:55 | IPN ---
DATE OF SERVICE: 05/25/2018 SUBJECTIVE: Patient examined at bedside. He is noted to have been weaned off of his oxygen as of this morning which he is tolerating well. Still having some coughing with slightly bloody phlegm but overall he states he is improving, feeling less short of breath. No other reported events overnight. PHYSICAL EXAMINATION: Vitals: Temperature 98.2, pulse 71, respirations 18, blood pressure 138/102, map of 114, pulse oximetry 95% on room air. General: Resting comfortably in bed. No acute distress. Alert and oriented times three. Fully conversant. HEENT: Normocephalic, atraumatic. Extraocular muscles intact. Moist mucous membranes. No pharyngeal edema, erythema or exudate. Patent airway. Cardiac: Regular rate and rhythm without murmur, clicks or gallops. Normal S1, S2. Lungs: Bilateral crackles in the bases more on the left, improving from admission. Equal chest rise. Clear lung sounds in bilateral upper lung guzman. Abdomen: Soft, nontender, nondistended. Positive bowel sounds. Extremities: 2+ pedal pulses bilaterally. No peripheral edema. Moving all extremities. Neuro: No focal deficits. Skin: No new lesions or rashes. LABS: WBC 18.1, hemoglobin and hematocrit 14/44, platelets 208. Electrolytes within normal limits. BUN and creatinine 16 and 1.17. CRP 1.45. Blood cultures negative at 24 hours. IMPRESSION AND PLAN: 1. Acute hypoxia secondary to aspiration pneumonia from recent surgery. Continue weaning down off of oxygen. He is gradually improving. Continue IV Zosyn, IV steroids day 2. CRP is trending down. Blood cultures negative at 24 hours. Will also attempt to obtain a sputum culture. Overall he is doing well and remains afebrile. 2. Leukocytosis. Up from 15 to 18 today. Likely secondary to steroids and his acute illness. He remains afebrile and is currently on antibiotics. 3. History of obstructive sleep apnea (OSBALDO) status post UPPP. Continue using home CPAP. 4. Osteoarthritis. Continue home pain medications. 5. Cervical disc herniations and peripheral neuropathy. Continue in Cymbalta. 6. Gastroesophageal reflux disease (GERD). Continue in Protonix. 7. Deep venous thrombosis (DVT) prophylaxis, encouraged ambulation, thromboembolic deterrent stockings (TEDS) and Sequential compression devices (SCD). DISPOSITION: Pending clinical improvement. Possible discharge next 24-48 hours. My faculty preceptor for this patient encounter was physically present during the encounter and was fully available. All aspects of the patient interview, examination, medical decision making process, and medical care plan development were reviewed and approved by the faculty preceptor. The faculty preceptor is aware and concurs with the plan as stated in the body of this note and will attest to such by his/her cosignature.
[2018-05-26] MEDS: PIPERACILLIN/TAZOBACTAM SOD 3.375 GM in D5W MINI-BAG PLUS 50 ML IV SCH ×2 (05:01→11:00)
[2018-05-26 06:00] VITALS: BP 125/90
[2018-05-26] MEDS: SLF 3 ML SYR IV SCH (06:00)
[2018-05-26 06:24] LABS: HEMATOCRIT 42.5 % (42.0-52.0); HEMOGLOBIN 14.4 g/dl (13.5-17.5); MEAN CORPUSCULAR HEMOGLOBIN 30.4 pg (27.0-33.0); MEAN CORPUSCULAR HGB CONC 33.9 g/dl (32.0-36.5); MEAN CORPUSCULAR VOLUME 89.9 fl (80.0-96.0); PLATELET COUNT, AUTOMATED 231 10^3/uL (150-450); RED BLOOD COUNT 4.73 10^6/uL (4.30-6.10); WHITE BLOOD COUNT 14.6 10^3/uL (4.0-10.0)
[2018-05-26 06:52] LABS: BLOOD UREA NITROGEN 20 MG/DL (7-18); CALCIUM LEVEL 8.7 MG/DL (8.5-10.1); CARBON DIOXIDE LEVEL 28 MEQ/L (21-32); CHLORIDE LEVEL 103 MEQ/L (98-107); CREATININE FOR GFR 1.19 MG/DL (0.70-1.30); GLOMERULAR FILTRATION RATE > 60.0 (>60); GLUCOSE, FASTING 106 MG/DL (70-100); POTASSIUM SERUM 3.8 MEQ/L (3.5-5.1); SODIUM LEVEL 140 MEQ/L (136-145)
[2018-05-26] MEDS: DULoxetine 30 MG CAP (CYMBALTA) PO SCH (09:34)
[2018-05-26] MEDS: PANTOPRAZOLE 40MG TAB (PROTONIX) PO SCH (09:34)
[2018-05-26] MEDS: methylPREDNISolone INJ 40 MG/1 ML VIAL (J2920) IV SCH (09:34)
[2018-05-26] MEDS ORDERED: AMOX875T2 PO (09:55)
[2018-05-26] MEDS ORDERED: PRED10PA PO (09:55)
[2018-05-26 14:00] VITALS: BP 138/95
--- NOTE | 2018-05-26 18:00 | DS.PDOC ---
Discharge Summary General Date of Admission May 23, 2018 at 17:46 Date of Discharge 05/26/18 Attending Physician: HANNAH VAZQUEZ DO Discharge Summary PROCEDURES PERFORMED DURING STAY: None. ADMITTING DIAGNOSES: 1. Aspiration PNA DISCHARGE DIAGNOSES: 1. Acute hypoxia secondary to aspiration pneumonia from recent surgery OSBALDO s/p UPPP, on CPAP Osteoarthritis Cervical disc herniations with peripheral neuropathy Gastroesophageal reflux disease HISTORY OF PRESENT ILLNESS: 47 yo M underwent surgery 2 days ago during which he woke up prior to his mouth guard and block were removed. He therefore choked on this and since then has had difficulty breathing, has been taking shallow breaths and noticed some bloody phlegm as well. He was advised to come to the emergency room for concerns of laryngospasm and aspiration. Was admitted for aspiration pneumonia. He continues on supplemental oxygen and antibiotics today and has no other complaints or concerns. No reported events overnight. He denies fever, chills, nausea, vomiting, abdominal pain, or any chest discomfort. HOSPITAL COURSE: He was placed on O2, which was weaned off as he improved during his stay. He was given IV steroids and IV antibiotics, with which he ultimately improved. He had no complications during his stay, and bloody phlegm ultimately resolved. CRP trended down. He was discharged on by mouth antibiotics and steroid taper, with instructions to closely follow-up with his primary doctor. He stated he was scheduled with his doctor for an annual physical and he weighs, and he would be seeing them very soon. DISCHARGE MEDICATIONS: Please see below. ALLERGIES: Please see below. PHYSICAL EXAMINATION ON DISCHARGE: VITAL SIGNS: Please see below. GENERAL: NAD, A&Ox3 HEENT: nc, at, EOMI, patent airway NECK: supple, no JVD CARDIOVASCULAR EXAMINATION: RRR, normal S1 S2 RESPIRATORY EXAMINATION: minimal bibasilar crackles b/l, otherwise CTAB ABDOMINAL EXAMINATION: soft, nt/nd, normoactive bowel sounds EXTREMITIES: 2+ pulses b/l, no cyanosis or edema SKIN: no visible rash or lesions, warm, dry NEUROLOGICAL EXAMINATION: no focal deficits, able to move all extremities LABORATORY DATA: Please see below. IMAGING: * 05/23/2018 CXR: No acute pulmonary disease. * 05/23/2018 CTA: There are no pulmonary emboli. There are bilateral infiltrates as described. PROGNOSIS: good ACTIVITY: As tolerated. DIET: as tolerated DISPOSITION: home DISCHARGE INSTRUCTIONS: 1. Follow-up with PCP within a week 2. Return to ER for emergency 3. Complete remaining course of antibiotic and steroid taper DISCHARGE CONDITION: Stable. TIME SPENT ON DISCHARGE: Greater than 35 minutes. Vital Signs/I&Os Vital Signs Date Time Temp Pulse Resp B/P (MAP) Pulse Ox O2 Delivery O2 Flow Rate FiO2 05/26/18 14:00 98.3 89 18 138/95 (109) 96 05/25/18 11:48 05/24/18 05:00 Nasal Cannula I&O- Last 24 Hours up to 6 AM 05/26/18 06:00 Intake Total 2140 ml Output Total 2400 ml Balance -260 ml Laboratory Data Labs 24H Laboratory Tests 2 05/26/18 05:49: Nucleated Red Blood Cells % (auto) 0.0, Anion Gap 9, Glomerular Filtration Rate > 60.0, Blood Urea Nitrogen 20H, Creatinine 1.19, Sodium Level 140, Potassium Level 3.8, Chloride Level 103, Carbon Dioxide Level 28, Calcium Level 8.7 CBC/BMP Laboratory Tests 05/26/18 05:49 Red Blood Count 4.73, Mean Corpuscular Volume 89.9, Mean Corpuscular Hemoglobin 30.4, Mean Corpuscular Hemoglobin Concent 33.9, Red Cell Distribution Width 12.5, Calcium Level 8.7 Microbiology Microbiology 05/23/18 Blood Culture - Preliminary, Resulted No Growth after 72 hours. All specime... 05/23/18 Blood Culture - Preliminary, Resulted No Growth after 72 hours. All specime... Discharge Medications Scheduled Amoxicillin/Potassium Clav (Amox-Clav 875-125 mg Tablet) 1 Each Tablet, 1 TAB PO BID Duloxetine Hcl (Duloxetine HCl) 60 Mg Capsule.dr, 60 MG PO DAILY, (Reported) Naproxen (Naproxen) 375 Mg Tablet, 375 MG PO BID, (Reported) Omeprazole (Omeprazole) 40 Mg Capsule.dr, 40 MG PO DAILY, (Reported) Prednisone (Prednisone) 10 Mg Tab.ds.pk, 1 TAB PO DAILY Take 4 pills(40mg) for 1 day,then 2 pills(20mg) for 2 days,then 1 pill(10mg) for 2 days,then stop after total of 5 days. Scheduled PRN Hydrocodone/Acetaminophen (Hydrocodone-Acetamin 5-325 mg) 1 Each Tablet, 1 TAB PO Q4H PRN for PAIN, (Reported) Allergies Coded Allergies: No Known Allergies (Unverified , 05/23/18) GME ATTESTATION GME ATTESTATION My faculty preceptor for this patient encounter was physically present during the encounter and was fully available. All aspects of the patient interview, examination, medical decision making process, and medical care plan development were reviewed and approved by the faculty preceptor. The faculty preceptor is aware and concurs with the plan as stated in the body of this note and will attest to such by his/her cosignature. JEFFREY JANE DO May 26, 2018 18:00
== END 2018-05-26 14:15 | disposition home or self-care (01) | DRG 206 ==
LOC: M ED 14:35 → M ED INP 17:46 → M PCU 05-24 12:55 → M MSPAV 05-25 17:26
PROVIDERS: ADMIT Family Medicine; ATTEND Internal Medicine
DX: J95.4 Chemical pneumonitis due to anesthesia (principal); R04.2 Hemoptysis; M50.20 Other cervical disc displacement, unspecified cervical region; E78.5 Hyperlipidemia, unspecified; K21.9 Gastro-esophageal reflux disease without esophagitis; G47.33 Obstructive sleep apnea (adult) (pediatric); M19.90 Unspecified osteoarthritis, unspecified site; G62.9 Polyneuropathy, unspecified; Z79.899 Other long term (current) drug therapy; Y83.8 Other surgical procedures as the cause of abnormal reaction of the patient, or of later complication, without mention of misadventure at the time of the procedure

== ENCOUNTER → 2018-06-14 | Outpatient (CLI) | payer OTHER ==
[~2018-06-14] MED LIST changes: +AMOX875T2 PO; +DULO1CAP3 PO; +HYDR-3713 PO; +NAPR-855 PO; +OMEP-221 PO; +PRED10PA PO
--- NOTE | 2018-06-15 05:30 | REP ---
Clinical: Follow up abnormal pulmonary findings. Technique: Axial noncontrast images from the thoracic inlet to the upper abdomen with coronal and sagittal re-formations. Comparison: 05/23/2018. Findings: The bilateral lung guzman are well-aerated, relatively symmetric and clear. Previously noted lower lobe infiltrates have resolved. No acute consolidation, significant nodule or mass lesion. No pleural effusion. No pneumothorax. Tracheobronchial tree is patent. Mediastinum demonstrates relatively normal thoracic aorta, pulmonary vasculature and heart/pericardium. No cardiomegaly or pericardial effusion. No thoracic aortic aneurysm identified. Musculoskeletal structures are intact. Impression: Normal noncontrast chest CT. Previously noted lower lobe infiltrates have resolved. Electronically Signed by Maciej Russell MD 06/15/2018 05:22 A
== END ==
LOC: M RAD 13:47
PROVIDERS: ATTEND Internal Medicine Pulmonary Disease
DX: Z87.09 Personal history of other diseases of the respiratory system (principal)

== ENCOUNTER → 2018-06-26 | Outpatient (CLI) | payer OTHER ==
[~2018-06-26] MED LIST changes: +METHACHOLINE KIT (J7674) INH ONE
--- NOTE | 2018-06-26 14:56 | PFTRPT ---
Height: 71.00 Inches Weight: 240.00 Lbs BSA: 2.28 Diagnosis: R05 DATE OF STUDY: 06/26/2018 ORDERED BY: Dr. Vigil INTERPRETATION: Study of excellent technical quality. Under protocol, methacholine was administered. At a dose of 2.5 mg (13.875 CDUs), a 23% decline in the FEV1 was noted. PC of 1.17 is significant. Flow rates did return to baseline post bronchodilator administration. IMPRESSION: Positive methacholine challenge study. MTDD
== END ==
LOC: M CARPUL 14:11
PROVIDERS: ATTEND Internal Medicine Pulmonary Disease
DX: R05 Cough (principal)
CPT/HCPCS: 94070; J7674

== ENCOUNTER → 2019-03-19 | Outpatient (CLI) | payer OTHER ==
[~2019-03-19] MED LIST changes: -DULO1CAP3 PO; +DULO1CAP6 PO; -METHACHOLINE KIT (J7674) INH ONE
--- NOTE | 2019-04-03 04:03 | ECWPNPC ---
PATIENT NAME: BONILLA RODRIGUEZ : 1970 GENDER: MALE VISIT DATE: 03/19/2019 DISCHARGE DATE: 03/19/19 1527 VISIT LOCKED DATE TIME: PHYSICIAN: STEVIE VERAS RESOURCE: STEVIE VERAS REASON FOR APPOINTMENT 1. POST LILLIAN HISTORY OF PRESENT ILLNESS HISTORY OF PRESENT ILLNESS: HERE FOR POST PROCEDURE FOLLOW-UP. HAD CERVICAL EPIDURAL STEROID INJECTION IN MAY 2018. REPORTING SEVERAL MONTHS OF REDUCTION IN PAIN POSTPROCEDURE. PAIN HAS GRADUALLY RETURNED TO BASELINE. RATING PAIN 3-9/10 VAS. PAIN RADIATES INTO HIS ARM, RIGHT GREATER THAN LEFT. DESCRIBES PAIN CONTINUOUS, ACHING, SHARP AND STABBING. PAIN THE PATIENT DESCRIBES THE PAIN... FALL RISK SCREENING: SCREENING :NO FALLS REPORTED IN THE LAST YEAR CURRENT MEDICATIONS TAKING OMEPRAZOLE 20 MG CAPSULE DELAYED RELEASE 1 CAPSULE ORALLY ONCE A DAY TAKING CYMBALTA 60 MG CAPSULE DELAYED RELEASE PARTICLES 1 CAPSULE ORALLY ONCE A DAY TAKING BUSPIRONE HCL 5 MG TABLET 1 TAB ORALLY TWICE A DAY NOT-TAKING IBUPROFEN 800 MG TABLET 1 TABLET WITH FOOD OR MILK NEEDED ORALLY THREE TIMES A DAY NOT-TAKING SIMVASTATIN 20 MG TABLET 1 TABLET IN THE EVENING ORALLY ONCE A DAY NOT-TAKING BUPROPION HCL ER (XL) 300 MG TABLET EXTENDED RELEASE 24 HOUR 1 TABLET IN THE MORNING ORALLY ONCE A DAY NOT-TAKING BACTRIM DS 800-160 MG TABLET 1 TABLET ORALLY TWICE A DAY MEDICATION LIST REVIEWED AND RECONCILED WITH THE PATIENT PAST MEDICAL HISTORY ACID REFLUX ARTHRITIS CHRONIC NECK/BACK PAIN HIGH CHOLESTEROL HYPERTENSION ALLERGIES N.K.D.A. SURGICAL HISTORY RIGHT INGUINAL HERNIA RIGHT INGUINAL HERNIA RIGHT INGUINAL HERNIA 09/19 RIGHT INGUINAL HERNIA 09/25 LEFT SHOULDER(SLAP REPAIR) 01/25 SEPTOPLASTY 07/26 BILATERAL LASIX 2007 LEFT ANKLE ARTHROSCOPY 2017 RIGHT TIB/FIB REPAIR 2006 FAMILY HISTORY FATHER: ALIVE MOTHER: SIBLINGS: ALIVE NON-CONTRIBUTORY SOCIAL HISTORY GENERAL: TOBACCO USE ARE YOU A:NONSMOKER SMOKELESS TOBACCO, CONTAINS NICOTEINE HIV / HEP-C SCREENING HIV TEST OFFERED TO PATIENT:YES DATE OFFERED:03/24/2017 TEST ACCEPTED:NO HEP-C TEST OFFERED TO PATIENT:NO REASON:PATIENT DECLINED OTHERS AT HOME: SPOUSE, CHILD. EDUCATION LEVEL OF EDUCATION:COLLEGE DIET: REGULAR. LANGUAGE LANGUAGES SPOKEN:INDONESIAN DOMESTIC VIOLENCE STATUS: HAS THE PATIETN EVER BEEN INJURED, HOMEBOUND, OR HOSPITALIZED DUE TO AN ALTERCATION WITH SIGNIFICANT OTHER?NO DO YOU FEEL SAFE IN YOUR ENVIRONMENT?YES RECREATIONAL DRUG USE DRUG USE?NO EXERCISE: NO REGULAR EXERCISE, JIU-MARIO-WRIGHT TWICE PER WEEK. LEARNING BARRIERS / SPECIAL NEEDS BARRIERS TO LEARNING?NO HEARING IMPAIRED?NO VISION IMPAIRED?YES COGNITIVELY IMPAIRED?NO :CORRECTIVE LENSES GLASSES/CONTACTS READINESS TO LEARN?YES LEARNING PREFERENCES?NO LEARNING CAPABILITIES PRESENT?YES EMOTIONAL BARRIERS?NO SPECIAL DEVICES?NO BRUSH WORKER NEEDED?NO PAIN CLINIC PFS, CLERGY, PUBLIC HEALTH REFERRALS WAS THE PROVIDER NOTIFIED OF ANY PERTINENT INFO?YES HAS THE PATIENT BEEN EDUCATED REGARDING HIS/HER PLAN OF CARE?YES HAS THE PATIENT BEEN EDUCATED REGARDING PAIN, THE RISK FOR PAIN, THE IMPORTANCE OF EFFECTIVE PAIN MANAGEMENT, AND THE PAIN ASSESSMENT PROCESS?YES LATEX QUESTIONNAIRE LATEX ALLERGY : HAVE YOU EVER DEVELOPED ANY TYPE OF REACTION AFTER HANDLING LATEX PRODUCTS SUCH RUBBER GLOVES, CONDOMS, DIAPHRAGMS, BALLOONS, SOCKS, OR UNDERWEAR?NO LATEX ALLERGY : HAVE YOU EVER DEVELOPED ANY TYPE OF REACTION DURING OR AFTER DENTAL APPOINTMENT, VAGINAL/RECTAL EXAMINATION, SURGICAL PROCEDURE, OR ANY OTHER EXPOSURE?NO LATEX RISK : HAVE YOU EVER HAD ANY DIFFICULTY BREATHING OR HIVES AFTER EATING OR HANDLING ANY FRUITS, OR VEGETABLES; SUCH KIWI, BANANAS, STONE FRUITS, OR CHESTNUTSNO LATEX RISK : DO YOU HAVE A PREVIOUS PERSONAL HISTORY OF MORE THAN NINE SURGERIES, SPINA BIFIDA, OR REPEATED CATHERIZATIONS? NO LATEX RISK : ARE YOU FREQUENTLY EXPOSED TO LATEX PRODUCTS IN YOUR OCCUPATION?NO DATE ASKED : 03/19/2019 CAFFEINE CAFFEINE USE?YES HOW OFTEN AND HOW MUCH? DAILY, 3 CUPS ADVANCE DIRECTIVE ADVANCE DIRECTIVE DISCUSSED WITH PATIENT:YES PT STATES THAT HE DOES NOT HAVE HCP AT THIS TIME, REFUSES ASSISTANCE WITH PAPERWORK. DS CONGREGATIONAL [id number] NONE MARITAL STATUS: . 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 REVIEWED WITH PATIENT 03/19/2019 DS. HOSPITALIZATION/MAJOR DIAGNOSTIC PROCEDURE SURGERIES ASPIRATION PNEUMONIA 2018 REVIEW OF SYSTEMS REVIEWED BY: PROVIDER: STEVIE JORGE . CONSTITUTIONAL: ANY CHANGE IN YOUR MEDICAL CONDITION? NO . CHILLS NO . FEVER NO . INFECTION: DO YOU HAVE NEW INFECTIONS? NO . DO YOU HAVE HISTORY OF MRSA? NO . MUSCULOSKELETAL: ANY NEW PATTERNS OF PAIN OR NUMBNESS? NO . GASTROENTEROLOGY: ANY NEW CHANGE IN BOWEL CONTROL? NO . GENITOURINARY: ANY NEW CHANGE IN BLADDER CONTROL? NO . IS THERE A CHANCE YOU COULD BE ? NO . HEMATOLOGY/LYMPH: DO YOU TAKE ANY BLOOD THINNERS? (FOR EXAMPLE- COUMADIN, PLAVIX, AGGRENOX, PLATEL, PRADAXA, OR XARELTO) NO . WHEN WAS YOUR LAST DOSE? DATE: TIME: . NEUROLOGY: HAVE YOU FALLEN IN THE PAST 12 MONTHS? NO . ANY NEW EXTREMITY NUMBNESS OR WEAKNESS? NO . CARDIOLOGY: DO YOU HAVE A PACEMAKER OR DEFIBRILLATOR? NO . RESPIRATORY: HAVE YOU BEEN SICK IN THE PAST WEEK? NO . FEVER NO . FLU LIKE SYMPTOMS? NO . COUGH NO . INTEGUMENTARY: DO YOU HAVE ANY RASHES OR OPEN SORES? NO . ALLERGIC/IMMUNO: ARE YOU ALLERGIC TO IV DYE? NO . ANY NEW ALLERGIES? NO . PSYCHIATRIC: DO YOU HAVE THOUGHTS OF HURTING YOURSELF OR SOMEONE ELSE? NO . ARE YOU ABUSED, NEGLECTED, OR IN AN UNSAFE ENVIRONMENT? NO . ENDOCRINOLOGY: ARE YOU DIABETIC? NO . OTHER: DO YOU NEED ANY PRESCRIPTIONS? NO . IF YES, PLEASE LIST: ____ . ANY NEW PROBLEMS WITH YOUR MEDICATIONS? NO . WHEN DID YOU LAST EAT? ____ . WHEN DID YOU LAST DRINK? ____ . WHAT DID YOU LAST DRINK? ____ . NAME OF PERSON DRIVING YOU HOME? ____ . DO YOU HAVE ANY OTHER QUESTIONS OR CONCERNS PT STATES THAT CERVICAL EPIDURAL WORKED FOR APPROXIMATELY 4 MONTHS . VITAL SIGNS WT 258 LBS, HT 71", BMI 35.98 INDEX, BP 168/100 MM HG, HR 86 /MIN, RR 16 /MIN, TEMP 97.4 F, OXYGEN SAT % 97%, SAFE IN ENV? (Y/N) Y, NA INITIALS AW 1433, REVIEWED BY: JOHN. EXAMINATION GENERAL EXAMINATION: GENERALALERT,NO DISTRESS . PSYCHAFFECT NORMAL . LUNGS:LUNG PABLO ARE CLEAR TO AUSCULTATION BILATERALLY. GOOD MOVEMENT OF AIR . HEART:S1, S2 IN A REGULAR RATE AND RHYTHM. NO SIGNIFICANT MURMURS, RUBS OR GALLOPS NOTED . MUSCULOSKELETAL:5/5 UPPER EXTREMITY MST. CERVICAL:- FOR PAIN WITH PALPATION OF CERVICAL SPINE. - FOR PAIN WITH PALPATION OF CERVICAL PARASPINALS. - FOR PAIN WITH PALPATION OF TRAPEZIUS BILAT . NEUROLOGIC EXAM:NORMAL SENSATION LIGHT TOUCH BILAT. ARMS.EQUAL /STRONG FRONT DESK ASSOCIATE STRENGTH BILAT. HANDS. DIAGNOSTIC:CERVICAL MRI-01/2017. ASSESSMENTS CERVICAL DISC DISORDER WITH RADICULOPATHY OF CERVICAL REGION - M50.10 (PRIMARY) TREATMENT CERVICAL DISC DISORDER WITH RADICULOPATHY OF CERVICAL REGION NOTES: , C7, T1 LILLIAN. PROCEDURE CODES FA211 ESTABILISHED PATIENT [facility] CHARGE DISPOSITION & COMMUNICATION FOLLOW UP POST (REASON: , C7, T1 LILLIAN) ELECTRONICALLY SIGNED BY LUISITO MINOR ON 04/02/2019 AT 01:17 PM EST DISCLAIMER : THIS IS A VISIT SUMMARY EXTRACTED FROM THE [employer] CHART. IT IS NOT A COPY OF THE [employer] PROGRESS NOTE. ANGELITA
== END ==
LOC: M PAIN 14:15
PROVIDERS: ATTEND Nurse Practitioner Family
DX: M50.10 Cervical disc disorder with radiculopathy, unspecified cervical region (principal)

== ENCOUNTER → 2019-04-24 | Outpatient (CLI) | payer OTHER ==
[~2019-04-24] MED LIST changes: +ISOVUE-M 300 61% 15ML VIAL (Q9967) As Ordered ONE; +LIDOCAINE 1% SDV INJ 30 ML VIAL As Ordered ONE; +methylPREDNISolone SUSP 40 MG/ML (DEPO-medrol) VIAL (J1030) As Ordered ONE
--- NOTE | 2019-04-24 13:38 | REP ---
Cervical spine series: Three views. History: Injection procedure for pain. 14 seconds of fluoroscopy time is reported. Findings: A sequence of three last image hold fluoroscopically obtained spot radiographs of the cervicothoracic junction document needle position and contrast injection associated with injection procedure. Electronically Signed by García Cardenas MD 04/24/2019 01:30 P
--- NOTE | 2019-04-27 04:26 | ECWPNPC ---
PATIENT NAME: BONILLA RODRIGUEZ : 1970 GENDER: MALE VISIT DATE: 04/24/2019 DISCHARGE DATE: 04/24/19 1141 VISIT LOCKED DATE TIME: PHYSICIAN: IRENE GONZALES MD RESOURCE: IRENE GONZALES MD REASON FOR APPOINTMENT 1. C7, T1 LILLIAN HISTORY OF PRESENT ILLNESS HISTORY OF PRESENT ILLNESS: PAIN THE PATIENT DESCRIBES THE PAIN... FALL RISK SCREENING: SCREENING :NO FALLS REPORTED IN THE LAST YEAR CURRENT MEDICATIONS TAKING OMEPRAZOLE 20 MG CAPSULE DELAYED RELEASE 1 CAPSULE ORALLY ONCE A DAY, NOTES: 04/23/2019 TAKING CYMBALTA 60 MG CAPSULE DELAYED RELEASE PARTICLES 1 CAPSULE ORALLY ONCE A DAY, NOTES: 04/23/2019 TAKING BUSPIRONE HCL 5 MG TABLET 1 TAB ORALLY TWICE A DAY, NOTES: 04/23/2019 NOT-TAKING IBUPROFEN 800 MG TABLET 1 TABLET WITH FOOD OR MILK NEEDED ORALLY THREE TIMES A DAY NOT-TAKING SIMVASTATIN 20 MG TABLET 1 TABLET IN THE EVENING ORALLY ONCE A DAY NOT-TAKING BUPROPION HCL ER (XL) 300 MG TABLET EXTENDED RELEASE 24 HOUR 1 TABLET IN THE MORNING ORALLY ONCE A DAY NOT-TAKING BACTRIM DS 800-160 MG TABLET 1 TABLET ORALLY TWICE A DAY MEDICATION LIST REVIEWED AND RECONCILED WITH THE PATIENT PAST MEDICAL HISTORY ACID REFLUX ARTHRITIS CHRONIC NECK/BACK PAIN HIGH CHOLESTEROL HYPERTENSION ALLERGIES N.K.D.A. SURGICAL HISTORY RIGHT INGUINAL HERNIA RIGHT INGUINAL HERNIA RIGHT INGUINAL HERNIA 09/19 RIGHT INGUINAL HERNIA 09/25 LEFT SHOULDER(SLAP REPAIR) 01/25 SEPTOPLASTY 07/26 BILATERAL LASIX 2007 LEFT ANKLE ARTHROSCOPY 2016 RIGHT TIB/FIB REPAIR 2006 FAMILY HISTORY FATHER: ALIVE MOTHER: SIBLINGS: ALIVE SOCIAL HISTORY GENERAL: TOBACCO USE ARE YOU A:USES TOBACCO IN OTHER FORMS SMOKELESS TOBACCO, CONTAINS NICOTEINE ADDITIONAL FINDINGS: TOBACCO USERCHEWS TOBACCO HIV / HEP-C SCREENING HIV TEST OFFERED TO PATIENT:YES DATE OFFERED:03/24/2017 TEST ACCEPTED:NO HEP-C TEST OFFERED TO PATIENT:NO REASON:PATIENT DECLINED OTHERS AT HOME: SPOUSE, CHILD. EDUCATION LEVEL OF EDUCATION:COLLEGE DIET: REGULAR. LANGUAGE LANGUAGES SPOKEN:NEW ZEALANDER DOMESTIC VIOLENCE STATUS: HAS THE PATIETN EVER BEEN INJURED, HOMEBOUND, OR HOSPITALIZED DUE TO AN ALTERCATION WITH SIGNIFICANT OTHER?NO DO YOU FEEL SAFE IN YOUR ENVIRONMENT?YES RECREATIONAL DRUG USE DRUG USE?NO EXERCISE: NO REGULAR EXERCISE, JIU-MARIO-WRIGHT TWICE PER WEEK. LEARNING BARRIERS / SPECIAL NEEDS BARRIERS TO LEARNING?NO HEARING IMPAIRED?NO VISION IMPAIRED?YES :CORRECTIVE LENSES GLASSES/CONTACTS COGNITIVELY IMPAIRED?NO READINESS TO LEARN?YES LEARNING PREFERENCES?NO LEARNING CAPABILITIES PRESENT?YES EMOTIONAL BARRIERS?NO SPECIAL DEVICES?NO EYEGLASS FITTER NEEDED?NO PAIN CLINIC PFS, CLERGY, PUBLIC HEALTH REFERRALS WAS THE PROVIDER NOTIFIED OF ANY PERTINENT INFO?YES HAS THE PATIENT BEEN EDUCATED REGARDING HIS/HER PLAN OF CARE?YES HAS THE PATIENT BEEN EDUCATED REGARDING PAIN, THE RISK FOR PAIN, THE IMPORTANCE OF EFFECTIVE PAIN MANAGEMENT, AND THE PAIN ASSESSMENT PROCESS?YES LATEX QUESTIONNAIRE LATEX ALLERGY : HAVE YOU EVER DEVELOPED ANY TYPE OF REACTION AFTER HANDLING LATEX PRODUCTS SUCH RUBBER GLOVES, CONDOMS, DIAPHRAGMS, BALLOONS, SOCKS, OR UNDERWEAR?NO LATEX ALLERGY : HAVE YOU EVER DEVELOPED ANY TYPE OF REACTION DURING OR AFTER DENTAL APPOINTMENT, VAGINAL/RECTAL EXAMINATION, SURGICAL PROCEDURE, OR ANY OTHER EXPOSURE?NO LATEX RISK : HAVE YOU EVER HAD ANY DIFFICULTY BREATHING OR HIVES AFTER EATING OR HANDLING ANY FRUITS, OR VEGETABLES; SUCH KIWI, BANANAS, STONE FRUITS, OR CHESTNUTSNO LATEX RISK : DO YOU HAVE A PREVIOUS PERSONAL HISTORY OF MORE THAN NINE SURGERIES, SPINA BIFIDA, OR REPEATED CATHERIZATIONS? NO LATEX RISK : ARE YOU FREQUENTLY EXPOSED TO LATEX PRODUCTS IN YOUR OCCUPATION?NO DATE ASKED : 04/24/2019 CAFFEINE CAFFEINE USE?YES HOW OFTEN AND HOW MUCH? DAILY, 3 CUPS ADVANCE DIRECTIVE ADVANCE DIRECTIVE DISCUSSED WITH PATIENT:YES 04/24/2019 PT DOES NOT HAVE ANY ADVANCED DIRECTIVES AND HE DECLINES INFORMATION ON HCP AT THIS TIME. AD MANDAEN [id number] NONE MARITAL STATUS: . 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 HOSPITALIZATION/MAJOR DIAGNOSTIC PROCEDURE SURGERIES ASPIRATION PNEUMONIA 2018 REVIEW OF SYSTEMS REVIEWED BY: PROVIDER: . CONSTITUTIONAL: ANY CHANGE IN YOUR MEDICAL CONDITION? NO . CHILLS NO . FEVER NO . INFECTION: DO YOU HAVE NEW INFECTIONS? NO . DO YOU HAVE HISTORY OF MRSA? NO . MUSCULOSKELETAL: ANY NEW PATTERNS OF PAIN OR NUMBNESS? NO . GASTROENTEROLOGY: ANY NEW CHANGE IN BOWEL CONTROL? NO . GENITOURINARY: ANY NEW CHANGE IN BLADDER CONTROL? NO . IS THERE A CHANCE YOU COULD BE ? NO . HEMATOLOGY/LYMPH: DO YOU TAKE ANY BLOOD THINNERS? (FOR EXAMPLE- COUMADIN, PLAVIX, AGGRENOX, PLATEL, PRADAXA, OR XARELTO) NO . WHEN WAS YOUR LAST DOSE? DATE: TIME: . NEUROLOGY: HAVE YOU FALLEN IN THE PAST 12 MONTHS? NO . ANY NEW EXTREMITY NUMBNESS OR WEAKNESS? NO . CARDIOLOGY: DO YOU HAVE A PACEMAKER OR DEFIBRILLATOR? NO . RESPIRATORY: HAVE YOU BEEN SICK IN THE PAST WEEK? NO . FEVER NO . FLU LIKE SYMPTOMS? NO . COUGH NO . INTEGUMENTARY: DO YOU HAVE ANY RASHES OR OPEN SORES? NO . ALLERGIC/IMMUNO: ARE YOU ALLERGIC TO IV DYE? NO . ANY NEW ALLERGIES? NO . PSYCHIATRIC: DO YOU HAVE THOUGHTS OF HURTING YOURSELF OR SOMEONE ELSE? NO . ARE YOU ABUSED, NEGLECTED, OR IN AN UNSAFE ENVIRONMENT? NO . ENDOCRINOLOGY: ARE YOU DIABETIC? NO . OTHER: DO YOU NEED ANY PRESCRIPTIONS? NO . IF YES, PLEASE LIST: ____ . ANY NEW PROBLEMS WITH YOUR MEDICATIONS? NO . WHEN DID YOU LAST EAT? 04/23/2019 . WHEN DID YOU LAST DRINK? 04/24/2019 0800 . WHAT DID YOU LAST DRINK? WATER . NAME OF PERSON DRIVING YOU HOME? JOSE RODRIGUEZ . DO YOU HAVE ANY OTHER QUESTIONS OR CONCERNS NO . VITAL SIGNS WT 257.2 LBS, HT 71", BMI 35.87 INDEX, BP 134/97 MM HG, HR 69 /MIN, RR 16 /MIN, TEMP 96.6 F, OXYGEN SAT % 97%, SAFE IN ENV? (Y/N) Y, NA INITIALS AW 0946, REVIEWED BY: JACY. ASSESSMENTS CERVICAL DISC DISORDER WITH RADICULOPATHY OF CERVICAL REGION - M50.10 (PRIMARY) TREATMENT CERVICAL DISC DISORDER WITH RADICULOPATHY OF CERVICAL REGION [facility] FLUORO GUIDE SPINE INJECTION (PAIN)[id number] PROCEDURES PN CERVICAL EPIDURAL PRE PROCEDURE DIAGNOSIS CERVICAL SPINAL STENOSIS, CERVICAL DISC DISORDER WITH RADICULOPATHY POST PROCEDURE DIAGNOSIS CERVICAL SPINAL STENOSIS, CERVICAL DISC DISORDER WITH RADICULOPATHY PROCEDURE CERVICAL EPIDURAL STEROID INJECTION UNDER FLUOROSCOPIC GUIDANCE SURGEON DR. IRENE GONZALES TRANSMISSION LINE ENGINEER NONE ANESTHESIA LOCAL PRE PROCEDURE NOTE THE PATIENT HAS A HISTORY OF CHRONIC CERVICAL PAIN. I EVALUATED THE PATIENT AND REVIEWED THE CHART. I WENT OVER THE RISKS, ALTERNATIVES, AND BENEFITS ASSOCIATED WITH THIS PROCEDURE. THE PATIENT WOULD LIKE TO PROCEED AND GIVES CONSENT TO PERFORM THE PROCEDURE. THE PATIENT DENIES UNEXPLAINABLE WEIGHT LOSS, FEVER, CHILLS, OR NEW CHANGES IN URINARY OR BOWEL CONTROL DESCRIPTION OF PROCEDURE THE PATIENT WAS BROUGHT TO THE PROCEDURE ROOM AND PLACED IN THE PRONE POSITION. THE CERVICOTHORACIC AREA WAS CLEANED WITH BETADINE SOLUTION AND DRAPED ASEPTICALLY. THE PROCEDURE WAS DONE UNDER STERILE CONDITIONS. I CHECKED LATERALITY AND THE LEVEL WHERE THE PROCEDURE WAS GOING TO BE PERFORMED WITH THE PATIENT AND THE SUPPORTING STAFF AT THE MOMENT OF THE TIME OUT IN THE PROCEDURE ROOM. UNDER FLUOROSCOPIC GUIDANCE, THE TARGET WAS SELECTED AT THE INTERLAMINAR LEVEL OF C7-T1. LIDOCAINE WAS USED TO NUMB THE SKIN AND THE SUBCUTANEOUS TISSUE BELOW IT. EPIDURAL TUOHY NEEDLE 17-GAUGE WAS ADVANCED UNDER FLUOROSCOPIC GUIDANCE AND FOLLOWING PATIENT FEEDBACK UNTIL THE EPIDURAL SPACE WAS REACHED 6 CM DEEP INTO THE SKIN BY THE LOSS OF RESISTANCE TECHNIQUE. ISOVUE M DYE 30%, 0.25 ML, WAS INJECTED SHOWING ADEQUATE SPREAD OF THE DYE. THEN, A SOLUTION OF 3 ML OF NORMAL SALINE WITH DEPO-MEDROL 60 MG WAS INJECTED SLOWLY FOLLOWING PATIENT FEEDBACK. THERE WAS NO EVIDENCE OF BLOOD, PARESTHESIA OR CEREBROSPINAL FLUID DURING THE PROCEDURE. THE PATIENT WAS SENT TO THE RECOVERY ROOM. THE PATIENT WAS MOVING THE EXTREMITIES AND DOING WELL. THERE WAS NO COMPLICATION DURING THE PROCEDURE. FLUOROSCOPY TIME WAS 14 SECONDS POST PROCEDURE NOTE THE PATIENT WILL BE SEEN IN A FOLLOW UP IN THE NEXT FEW WEEKS. I AM LOOKING FOR LONG LASTING PAIN RELIEF FOR THE PATIENT WITH THIS INJECTION. INSTRUCTIONS WERE GIVEN, QUESTIONS WERE ANSWERED, AND THE PATIENT EXPRESSED UNDERSTANDING AND AGREES WITH THE PLAN. I, NORAH OCHOA, DOCUMENTED THE ABOVE INFORMATION ACTING A SCRIBE FOR DR. GONZALES. I HAVE REVIEWED THE ABOVE DOCUMENT, WRITTEN BY NORAH OCHOA SCRIBMari AND I VERIFY THAT IT IS ACCURATE. PROCEDURE CODES 94373 CERVICAL/THORACIC W/ IMAGING 6045F RADXPS IN END [id number] PXD DISPOSITION & COMMUNICATION FOLLOW UP 3 WEEKS ELECTRONICALLY SIGNED BY IRENE GONZALES MD, MD ON 04/26/2019 AT 09:33 AM EDT DISCLAIMER : THIS IS A VISIT SUMMARY EXTRACTED FROM THE [employer] CHART. IT IS NOT A COPY OF THE [employer] PROGRESS NOTE. MTDD
== END ==
LOC: M PAIN 09:45
PROVIDERS: ATTEND Anesthesiology
DX: M50.10 Cervical disc disorder with radiculopathy, unspecified cervical region (principal); K21.9 Gastro-esophageal reflux disease without esophagitis; I10 Essential (primary) hypertension; F17.220 Nicotine dependence, chewing tobacco, uncomplicated; Z79.899 Other long term (current) drug therapy
CPT/HCPCS: 62321; J1030; Q9967

== ENCOUNTER → 2020-01-23 | Outpatient (CLI) | payer OTHER ==
[~2020-01-23] MED LIST changes: +BUSP5TA PO; +CHOL50003 PO; +CIDA500T2 PO; -ISOVUE-M 300 61% 15ML VIAL (Q9967) As Ordered ONE; -LIDOCAINE 1% SDV INJ 30 ML VIAL As Ordered ONE; +MULT-90 PO; +NUGENIX TOTAL T PO; +PROAAER10 INH; +PULM90IN INH; +ROSU20TA5 PO; +SING5CHW23 PO; +SYMB16INH INH; +TRAZ-252 PO; +[UNRECOGNIZED DRUG - CODE] PO; -methylPREDNISolone SUSP 40 MG/ML (DEPO-medrol) VIAL (J1030) As Ordered ONE
== END ==
LOC: M LABSMTC 11:00
PROVIDERS: ATTEND Anesthesiology
DX: Z01.812 Encounter for preprocedural laboratory examination (principal); Z20.828 Contact with and (suspected) exposure to other viral communicable diseases

== ENCOUNTER 2020-01-28 09:48 | Day surgery (SDC) | payer OTHER ==
[~2020-01-28] VITALS: Ht 185.4 cm; Wt 119.2 kg
[~2020-01-28 09:48] MED LIST changes: -CHOL50003 PO; -CIDA500T2 PO; -MULT-90 PO; +NS 1,000 ML IV ONE; -NUGENIX TOTAL T PO; -SYMB16INH INH; -[UNRECOGNIZED DRUG - CODE] PO
[2020-01-28] MEDS ORDERED: propofoL 200 MG/20 ML VIAL As Ordered ONE ×3 (10:18→11:51)
[2020-01-28] MEDS ORDERED: LIDOCAINE 2% 100MG/5ML SDV (FOR ANES.) As Ordered ONE (10:19)
[2020-01-28] MEDS ORDERED: CHOL50003 PO (10:32)
[2020-01-28] MEDS ORDERED: [UNRECOGNIZED DRUG - CODE] PO (10:32)
[2020-01-28] MEDS ORDERED: MULT-90 PO (10:32)
[2020-01-28] MEDS ORDERED: CIDA500T2 PO (10:32)
[2020-01-28] MEDS ORDERED: SYMB16INH INH (10:32)
[2020-01-28] MEDS ORDERED: NUGENIX TOTAL T PO (10:32)
--- NOTE | 2020-01-28 12:15 | ROOR ---
Patient Name: Nick Kline Procedure Date: 01/28/2020 11:32 AM Date of : 1970 Age: 49 Room: [facility] Gender: Male Note Status: Finalized Procedure: Colonoscopy Indications: Screening for colorectal malignant neoplasm, This is the patient's first colonoscopy Providers: Kam Lamar MD Referring MD: MANUELITO TERRELL Requesting Provider: Medicines: Monitored Anesthesia Care Complications: No immediate complications. Procedure: Pre-Anesthesia Assessment: - Prior to the procedure, a History and Physical was performed, and patient medications and allergies were reviewed. The patient is competent. The risks and benefits of the procedure and the sedation options and risks were discussed with the patient. All questions were answered and informed consent was obtained. Patient identification and proposed procedure were verified by the physician, the nurse and the anesthesiologist in the procedure room. Mental Status Examination: alert and oriented. Airway Examination: normal oropharyngeal airway and neck mobility. Prophylactic Antibiotics: The patient does not require prophylactic antibiotics. Prior Anticoagulants: The patient has taken no previous anticoagulant or antiplatelet agents. ASA Grade Assessment: III - A patient with severe systemic disease. After reviewing the risks and benefits, the patient was deemed in satisfactory condition to undergo the procedure. The anesthesia plan was to use monitored anesthesia care (MAC). Immediately prior to administration of medications, the patient was re-assessed for adequacy to receive sedatives. The heart rate, respiratory rate, oxygen saturations, blood pressure, adequacy of pulmonary ventilation, and response to care were monitored throughout the procedure. The physical status of the patient was re-assessed after the procedure. The Colonoscope was introduced through the anus and advanced to the cecum, identified by appendiceal orifice and ileocecal valve. The colonoscopy was performed without difficulty. The patient tolerated the procedure well. The quality of the bowel preparation was excellent. Findings: The perianal and digital rectal examinations were normal. A 3 mm polyp was found in the distal ascending colon. The polyp was sessile. The polyp was removed with a jumbo cold forceps. Resection and retrieval were complete. Estimated blood loss was minimal. A 4 mm polyp was found in the sigmoid colon. The polyp was sessile. The polyp was removed with a jumbo cold forceps. Resection and retrieval were complete. Estimated blood loss was minimal. A 3 mm polyp was found in the rectum. The polyp was sessile. The polyp was removed with a jumbo cold forceps. Resection and retrieval were complete. Estimated blood loss was minimal. Impression: - One 3 mm polyp in the distal ascending colon, removed with a jumbo cold forceps. Resected and retrieved. - One 4 mm polyp in the sigmoid colon, removed with a jumbo cold forceps. Resected and retrieved. - One 3 mm polyp in the rectum, removed with a jumbo cold forceps. Resected and retrieved. Recommendation: - Discharge patient to home. - Resume previous diet. - Continue present medications. - Await pathology results. - If the pathology report reveals adenomatous tissue, then repeat the colonoscopy for surveillance in 3 - 5 years. Procedure Code(s): --- Professional --- 43297, Colonoscopy, flexible; with biopsy, single or multiple Diagnosis Code(s): --- Professional --- Z12.11, Encounter for screening for malignant neoplasm of colon K63.5, Polyp of colon K62.1, Rectal polyp CPT copyright 2019 [employer]. All rights reserved. The codes documented in this report are preliminary and upon back hand review may be revised to meet current compliance requirements. Kam Lamar MD Kam Lamar MD 01/28/2020 12:15:31 PM Electronically signed by Kam Lamar MD Number of Addenda: 0 Note Initiated On: 01/28/2020 11:32 AM Estimated Blood Loss: Estimated blood loss was minimal.
[2020-01-28 12:42] VITALS: BP 128/91
== END 2020-01-28 12:44 | disposition home or self-care (01) ==
LOC: M OPP 09:48
PROVIDERS: ATTEND Surgery
DX: Z12.11 Encounter for screening for malignant neoplasm of colon (principal); K62.1 Rectal polyp; K63.5 Polyp of colon; G47.30 Sleep apnea, unspecified; F17.210 Nicotine dependence, cigarettes, uncomplicated; Z79.899 Other long term (current) drug therapy

== ENCOUNTER → 2020-11-17 | Outpatient (REF) ==
[~2020-11-17] MED LIST changes: +CHOL50003 PO; +CIDA500T2 PO; +MULT-90 PO; -NS 1,000 ML IV ONE; +NUGENIX TOTAL T PO; +SYMB16INH INH; +[UNRECOGNIZED DRUG - CODE] PO
--- NOTE | 2020-11-17 10:21 | REP ---
INDICATION: PAIN COMPARISON: None. TECHNIQUE: AP, lateral, coned-down views of the lumbar spine. FINDINGS: Three views of the lumbosacral spine demonstrate satisfactory alignment and lordosis without acute fracture / compression injury or subluxation. Generalized age-related changes are appreciated. The disc spaces appear relatively well maintained. IMPRESSION: 1. No acute fracture / compression injury or subluxation. 2. Generalized age-related changes. Disc spaces are well maintained. <Electronically signed by Maciej Russell > 11/17/20 1016
--- NOTE | 2020-11-17 10:22 | REP ---
INDICATION: PAIN. COMPARISON: None. TECHNIQUE: AP, lateral, swimmer's, and open-mouth views of the cervical spine FINDINGS: Alignment and lordosis maintained. Advanced multilevel degenerative changes include osteophytosis, endplate sclerosis, and disc space narrowing primarily involving C6-7 and C5-6. No acute fracture/compression injury or subluxation. IMPRESSION: Advanced degenerative spondylosis primarily involving C5-6 and C6-7. <Electronically signed by Maciej Russell > 11/17/20 1019
== END ==
LOC: M PLALAB 09:17
PROVIDERS: ATTEND Internal Medicine
DX: M43.02 Spondylolysis, cervical region (principal)

== ENCOUNTER 2021-07-16 04:03 | Emergency (ER) | payer OTHER ==
[~2021-07-16] VITALS: Ht 180.3 cm; Wt 106.0 kg
[2021-07-16 04:03] VITALS: BP 176/107
[~2021-07-16 04:03] MED LIST changes: -OMEP-221 PO; +OMEP40CA5 PO
[2021-07-16] MEDS ORDERED: PEPT262C2 PO (04:10)
[2021-07-16] MEDS ORDERED: DIPH50CA PO (04:10)
== END 2021-07-16 06:14 | disposition left against medical advice (07) ==
LOC: M ED 04:03
DX: Z53.29 Procedure and treatment not carried out because of patient's decision for other reasons (principal)